=== PATIENT | female | born 1975 | race Caucasian/White ===

== ENCOUNTER 2018-05-06 13:33 | Outpatient (REF) | payer MEDICAID, SELFPAY | END 2018-05-06 13:53 | LOC: NCHCN 13:33 | PROVIDERS: PCP Internal Medicine; Visit Provider Registered Nurse | DX: R35.0 Frequency of micturition (principal) | CPT/HCPCS: 87077; 87086; 87186 ==

== ENCOUNTER 2018-05-14 12:13 | Outpatient (CLI) | payer MEDICAID, SELFPAY ==
[2018-05-14 14:17] LABS: ALT 25 U/L (12-78); AST 18 U/L (15-37); Albumin 3.8 g/dL (3.4-5.0); Alkaline Phosphatase 60 U/L (46-116); Bilirubin, Direct 0.15 mg/dL (0.00-0.20); Bilirubin, Total 0.7 mg/dL (0.2-1.0); Total Protein 6.8 g/dL (6.4-8.2)
== END 2018-05-14 12:33 ==
PROVIDERS: PCP Internal Medicine; Visit Provider Registered Nurse
DX: F10.20 Alcohol dependence, uncomplicated (principal)
CPT/HCPCS: 36415; 80076

== ENCOUNTER 2018-07-22 14:37 | Outpatient (REF) | payer MEDICAID, SELFPAY | END 2018-07-22 14:57 | LOC: NCHCN 14:37 | PROVIDERS: PCP Internal Medicine; Visit Provider Registered Nurse | DX: R82.90 Unspecified abnormal findings in urine (principal) | CPT/HCPCS: 87086 ==

== ENCOUNTER 2018-07-23 17:10 | Outpatient (CLI) | payer MEDICAID, SELFPAY ==
--- NOTE | 2018-07-23 15:00 | DI.CT_ITS ---
SYMPTOMS/DIAGNOSIS: RIGHT LOWER QUADRANT ABDOMINAL PAIN, R10.31, ? RENAL STONE OR APPENDICITIS PRE AND POST CONTRAST ABDOMINAL AND PELVIC CT: Noncontrast CT scan of the abdomen and pelvis was performed. No nephrolithiasis or hydronephrosis is seen. The gallbladder is negative sonographically. Post contrast images of the abdomen and pelvis were performed. Note is made of bilateral breast implants. The lung bases are clear. The liver is normal in size. No suspicious hepatic masses are seen. The portal and superior mesenteric veins are patent. The gallbladder is negative. There is no biliary ductal dilatation. The pancreas, spleen and adrenal glands are unremarkable. The kidneys show normal and symmetric enhancement. No evidence of a solid renal mass or obstruction. The urinary bladder is intact. The reproductive organs are unremarkable. The abdominal aorta is of normal caliber. No significant abdominal or pelvic adenopathy, ascites or pneumoperitoneum is present. The bowel shows no evidence of obstruction or inflammation. There is a normal air-filled appendix. No findings to suggest acute appendicitis are present. The bones are intact. No acute abnormality is identified. IMPRESSION: No evidence of an acute abdomen. No evidence of nephrolithiasis, obstructive uropathy or acute appendicitis.
[2018-07-23] MEDS: Omnipaque 350 MG/ML 100 ML BTL IJ (15:29)
== END 2018-07-23 17:30 ==
PROVIDERS: PCP Internal Medicine; Visit Provider Registered Nurse
DX: R10.31 Right lower quadrant pain (principal)
CPT/HCPCS: 74178; J3490

== ENCOUNTER 2020-01-11 20:47 | Outpatient (REF) | payer BC, SELFPAY | END 2020-01-11 21:07 | LOC: NCHCN 20:47 | PROVIDERS: PCP Internal Medicine; Visit Provider Nurse Practitioner Community Health | DX: R31.9 Hematuria, unspecified (principal) | CPT/HCPCS: 87086 ==

== ENCOUNTER 2020-06-16 18:47 | Outpatient (REF) | payer BC, SELFPAY ==
[2020-06-22 04:01] LABS: Patient Race White; SARS-CoV-2 RNA Undetected (Undetected); SARS-CoV-2 Specimen Source Nasal
== END 2020-06-16 19:07 ==
LOC: NCHCN 18:47
PROVIDERS: PCP Internal Medicine; Visit Provider Registered Nurse
DX: Z20.828 Contact with and (suspected) exposure to other viral communicable diseases (principal)
CPT/HCPCS: U0003

== ENCOUNTER 2020-09-07 13:34 | Outpatient (REF) | payer BC, SELFPAY ==
[2020-09-07 15:01] LABS: Anion Gap 6.6 mmol/L (3-11); BUN 12 mg/dL (7-18); CO2 26.4 mmol/L (21.0-32.0); CREATININE 0.84 mg/dL (0.55-1.02); Chloride 102 mmol/L (98-107); Glucose 98 mg/dL (74-106); Potassium 4.2 mmol/L (3.5-5.1); Sodium 135 mmol/L (136-145)
== END 2020-09-07 13:54 ==
LOC: NCHCN 13:34
PROVIDERS: PCP Internal Medicine; Visit Provider Registered Nurse
DX: R61 Generalized hyperhidrosis (principal); R29.2 Abnormal reflex; R68.82 Decreased libido
CPT/HCPCS: 80048

== ENCOUNTER 2020-09-14 02:04 | Outpatient (CLI) | payer BC, SELFPAY ==
--- NOTE | 2020-09-14 | DI.MRI_ITS ---
EXAM: MR LUMBAR SPINE WO CLINICAL HISTORY: BACK PAIN WITH RADICULOPATHY,M54.16,ACUTE ON CHRONIC. TECHNIQUE: Multiplanar multisequence MRI of the Lumbar spine was performed. COMPARISON: No exams were available for comparison FINDINGS: Bones: The last intervertebral disc space is designated the L5/S1 level for the numbering purpose of this examination. The vertebral body heights are well maintained. Alignment is satisfactory. Mild d egenerative endplate signal changes are seen at T11-T12, T12-L1, and from L3-4 through L5-S1. Cord: The conus tip ends at the T12 level. It is of normal size and signal intensity. T12-L1: No disc herniations or bulges are present. No central spinal canal or neural foraminal stenos is. L1-2: No disc herniations or bulges are present. No central spinal canal or neural foraminal stenosis . L2-3: No disc herniations or bulges are present. No central spinal canal or neural foraminal stenosis . L3-4: No disc herniations or bulges are present. No central spinal canal or neural foraminal stenosis . L4-5: There is diffuse disc bulge eccentric to the right. It causes right lateral recess stenosis an d appears to compress upon the right L5 nerve root. There is very mild narrowing of the central spin al canal. No significant neural foraminal stenosis is seen. L5-S1: No disc herniations or bulges are present. No central spinal canal or neural foraminal stenosi s. Soft tissues: The visualized SI joints and sacrum are well maintained. The paraspinal soft tissues ar e unremarkable. IMPRESSION: Diffuse disc bulge eccentric to the right at L4-L5 which appears to compress upon the right L5 nerve root and causes right lateral recess stenosis. There is mild narrowing of the central spinal canal a t this level. DATA REPOSITORY:
== END 2020-09-14 02:05 | disposition home or self-care (01) ==
LOC: DI 02:04
PROVIDERS: PCP Internal Medicine; Visit Provider Registered Nurse
DX: M48.061 Spinal stenosis, lumbar region without neurogenic claudication (principal); M51.26 Other intervertebral disc displacement, lumbar region; M54.16 Radiculopathy, lumbar region
CPT/HCPCS: 72148

== ENCOUNTER 2021-06-09 10:49 | Emergency (ER) | payer BC, SELFPAY ==
[2021-06-09] VITALS (11 sets, daily range): BP systolic 123–173; BP diastolic 85–111; PULSE 73–96; RESP 13–23; TEMP 36.9; O2SAT 98–99
--- NOTE | 2021-06-09 11:15 | RT.EKG_ITS ---
APPROVED REPORT Exam: Resting ECG Reason for Exam: fluttering Patient Location: E HR:79 bpm ECG Measurements Heart Rate 79 AXIS ME 144 P 28 QRSd 94 QRS 62 QT 381 T 33 QTc 438 Conclusion Sinus rhythm...normal P axis, V-rate 60- 99 Physician: no stemi
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
[2021-06-09 11:43] LABS: Abs Immature Grans 0.04 10^3/uL (0.0-0.06); Absolute Basophil Count 0.03 10^3/uL (0.0-0.2); Absolute Lymphocyte Count 1.86 10^3/uL (1.2-3.4); Absolute Monocyte Count 0.48 10^3/uL (0.1-0.8); Absolute Neutrophil Count 5.05 10^3/uL (1.2-6.7); Basophils % 0.4; Eosinophils % 1.3; HCT 43.3 % (36.0-46.0); Immature Grans % 0.5; Lymphocytes % 24.6; MCH 32.1 pg (27.0-33.0); MCHC 34.6 % (32.0-36.0); MCV 92.7 fL (80-95); MPV 9.8 fL (8.0-11.0); Monocytes % 6.3; Neutrophils % 66.9; Nucleated RBC 0 %; Platelet Count 294 10^3/uL (130-400); RBC 4.67 10^6/uL (3.93-5.22); RDW 11.9 % (11.7-14.6); RDW-SD 40.6 fL; WBC 7.56 10^3/uL (4.4-10.8)
[2021-06-09] MEDS: Normal Saline 1,000 ML 1000 ML IV (11:43)
[2021-06-09] MEDS: Prochlorperazine 10 MG/2 ML VIAL IVP (11:45)
[2021-06-09] MEDS: ACETAMINOPHEN 1,000 MG/100 ML BTL 400 MG IVPB (11:47)
[2021-06-09 12:04] LABS: ALT 31 U/L (14-59); AST 21 U/L (15-37); Albumin 4.1 g/dL (3.4-5.0); Alkaline Phosphatase 68 U/L (46-116); Anion Gap 7.9 mmol/L (3-11); BUN 11 mg/dL (7-18); Bilirubin, Total 0.7 mg/dL (0.2-1.0); CO2 28.1 mmol/L (21.0-32.0); CREATININE 0.8 mg/dL (0.55-1.02); Calcium 9.2 mg/dL (8.5-10.1); Chloride 104 mmol/L (98-107); Glucose 105 mg/dL (74-106); Magnesium 2.1 mg/dL (1.8-2.4); Potassium 4.2 mmol/L (3.5-5.1); Sodium 140 mmol/L (136-145); Total Protein 7.7 g/dL (6.4-8.2)
[2021-06-09 12:08] LABS: Troponin I < 0.05 ng/mL (<0.06)
[2021-06-09 12:16] LABS: TSH 2.24 uIU/mL (0.36-3.74)
== END 2021-06-09 13:23 | disposition left against medical advice (07) ==
PROVIDERS: Emergency Provider Physician Assistant; PCP Internal Medicine
DX: H53.8 Other visual disturbances (principal); R51.9 Headache, unspecified; Z53.29 Procedure and treatment not carried out because of patient's decision for other reasons
CPT/HCPCS: 36415; 80053; 93005; 96361; 96374; 96375; 99284; 83735; 84443; 84484; 85025; 93010; 99285; J0131; J0780

== ENCOUNTER 2022-01-05 16:17 | Outpatient (REF) | payer BC, SELFPAY ==
[2022-01-08 10:31] LABS: HBs Antibody, Quant 68.2 mIU/mL (See Note); Hepatitis B Surface Ab Positive (See Note)
== END 2022-01-05 16:18 | disposition home or self-care (01) ==
LOC: NCHCN 16:17
PROVIDERS: PCP Internal Medicine; Visit Provider Registered Nurse
DX: Z11.59 Encounter for screening for other viral diseases (principal)
CPT/HCPCS: 86706

== ENCOUNTER 2022-09-26 15:05 | Outpatient (REF) | payer BC, SELFPAY ==
[2022-09-26 21:39] LABS: ALT 35 U/L (14-59); AST 29 U/L (15-37); Albumin 4.2 g/dL (3.4-5.0); Alkaline Phosphatase 72 U/L (46-116); Anion Gap 9.6 mmol/L (3-11); BUN 8 mg/dL (7-18); Bilirubin, Total 0.6 mg/dL (0.2-1.0); CO2 25.4 mmol/L (21.0-32.0); CREATININE 0.8 mg/dL (0.55-1.02); Calcium 9.5 mg/dL (8.5-10.1); Calculated LDL 132 mg/dL (<100); Chloride 101 mmol/L (98-107); Cholesterol 262 mg/dL (<200); Estimated GFR 93.12 (mL/min/1.73m2); Glucose 103 mg/dL (74-106); HDL Cholesterol 122 mg/dL (40-60); Potassium 4.2 mmol/L (3.5-5.1); Sodium 136 mmol/L (136-145); Total Protein 7.7 g/dL (6.4-8.2); Triglyceride 40 mg/dL (<150)
== END 2022-09-26 15:06 | disposition home or self-care (01) ==
LOC: NCHCN 15:05
PROVIDERS: PCP Internal Medicine; Visit Provider Registered Nurse
DX: I10 Essential (primary) hypertension (principal); Z13.220 Encounter for screening for lipoid disorders
CPT/HCPCS: 80053; 80061

== ENCOUNTER 2023-06-26 17:34 | Outpatient (REF) | payer BC, SELFPAY ==
--- OUTSIDE RECORDS SUMMARY | 2023-06-26 17:37 | XMS_ITS | CCD ---
Author Name Unknown Address [address] [place] [address] [phone] Organization Unknown Address [address] [place] [address] [phone] Care Team Providers Care Financial Institution Treasurer Name Role Phone CARLOS RUTH Attending Physician [phone] CARLOS RUTH Rounding (Secondary) Physician [phone] Vital Signs Unknown or Not Available. Allergies Allergy Code Allergy Type Reaction Status TOPAMAX 914821 Drug allergy FACIAL RASH; Rash Activ e ROFECOXIB 111685 Drug allergy THROAT FELT LIK E CLOSING; VIOXX Active SULFA (sulfonamide) 0 Drug allergy Rash; ABD pain Active LAMICTAL 248540 Drug allergy FACIAL RASH; Rash Activ e LATEX 5468006 Allergy to substance YEAST INFECTION Active Procedures Unknown or Not Available. History of Immunizations Unknown or Not Available. Problems Unknown or Not Available. Results Unknown or Not Available. Active Medications Unknown or Not Available. Medications Administered During Visit Unknown or Not Available. Encounters Encounter Diagnosis Diagnosis Code Start Date Chronic migraine without aur a, not intractable, without status migrainosus [id number] 02/23/2022 Social History Smoking Status Code Start Date End Date Former smoker [id number] Patient Decision Aids Unknown or Not Available. Discharge Instructions You were admitted to [facility] on 02/23/2022 09:34 with a principal diagnosis of Chronic migraine without aura, not intractable, without status migrainosus You were discharged from [facility] on 02/23/2022 00:00 Should you have any questions prior to discharge, please contact a member of your healthcare team. If you have left the hospital and have any questions, please contact your primary care physician. Chief Complaint and Reason For Visit Unknown or Not Available. Function Status Unknown or Not Available. Plan of Care Unknown or Not Available. Referral/Transition of Care Unknown or Not Available.
--- OUTSIDE RECORDS SUMMARY | 2023-06-26 17:37 | XMS_ITS | CCD ---
Author Name Unknown Address [address] [place] [address] [id number] Organization Unknown Address [address] [place] [address] [id number] Care Team Providers Care Etch Operator Semiconductor Wafers Name Role Phone CARLOS RUTH Attending Physician [phone] Vital Signs Unknown or Not Available. Allergies Allergy Code Allergy Type Reaction Status TOPAMAX 049667 Drug allergy FACIAL RASH; Rash Activ e ROFECOXIB 382992 Drug allergy THROAT FELT LIK E CLOSING; VIOXX Active SULFA (sulfonamide) 0 Drug allergy Rash; ABD pain Active LAMICTAL 580489 Drug allergy FACIAL RASH; Rash Activ e LATEX 7481253 Allergy to substance YEAST INFECTION Active Procedures Unknown or Not Available. History of Immunizations Unknown or Not Available. Problems Unknown or Not Available. Results Unknown or Not Available. Active Medications Unknown or Not Available. Medications Administered During Visit Unknown or Not Available. Encounters Encounter Diagnosis Diagnosis Code Start Date Chronic intractable migraine without aura [id number] 11/23/2022 Social History Smoking Status Code Start Date End Date Former smoker [id number] Patient Decision Aids Unknown or Not Available. Discharge Instructions You were admitted to [facility] on 11/23/2022 13:03 with a principal diagnosis of Chronic migraine without aura, intractable, without status migrainosus You were discharged from [facility] on 11/23/2022 13:03 Should you have any questions prior to [...]
--- OUTSIDE RECORDS SUMMARY | 2023-06-26 17:37 | XMS_ITS | CCD ---
Author Name Unknown Address [address] [place] [address] [phone] Organization Unknown Address [address] [place] [address] [phone] Care Team Providers Care Electric Range Servicer Name Role Phone CARLOS RUTH Attending Physician [phone] CARLOS RUTH Rounding (Secondary) Physician [phone] Vital Signs Unknown or Not Available. Allergies Allergy Code Allergy Type Reaction Status TOPAMAX 435376 Drug allergy FACIAL RASH; Rash Activ e ROFECOXIB 766170 Drug allergy THROAT FELT LIK E CLOSING; VIOXX Active SULFA (sulfonamide) 0 Drug allergy Rash; ABD pain Active LAMICTAL 924431 Drug allergy FACIAL RASH; Rash Activ e LATEX 5298819 Allergy to substance YEAST INFECTION Active Procedures Unknown or Not Available. History of Immunizations Unknown or Not Available. Problems Unknown or Not Available. Results Unknown or Not Available. Active Medications Unknown or Not Available. Medications Administered During Visit Unknown or Not Available. Encounters Encounter Diagnosis Diagnosis Code Start Date Chronic migraine without aur a, not intractable, without status migrainosus [id number] 05/25/2022 Social History Smoking Status Code Start Date End Date Former smoker [id number] Patient Decision Aids Unknown or Not Available. Discharge Instructions You were admitted to [facility] on 05/25/2022 13:47 with a principal diagnosis of Chronic migraine without aura, not intractable, without status migrainosus You were discharged from [facility] on 05/25/2022 00:00 Should you have any questions prior [...]
--- OUTSIDE RECORDS SUMMARY | 2023-06-26 17:37 | XMS_ITS | CCD ---
Author Name Unknown Address [address] [place] [address] [phone] Organization Unknown Address [address] [place] [address] [phone] Care Team Providers Care Bleach Maker Name Role Phone CARLOS RUTH Attending Physician [phone] Vital Signs Unknown or Not Available. Allergies Allergy Code Allergy Type Reaction Status TOPAMAX 050614 Drug allergy FACIAL RASH; Rash Activ e ROFECOXIB 382534 Drug allergy THROAT FELT LIK E CLOSING; VIOXX Active SULFA (sulfonamide) 0 Drug allergy Rash; ABD pain Active LAMICTAL 957471 Drug allergy FACIAL RASH; Rash Activ e LATEX 6918980 Allergy to substance YEAST INFECTION Active Procedures Unknown or Not Available. History of Immunizations Unknown or Not Available. Problems Unknown or Not Available. Results Unknown or Not Available. Active Medications Unknown or Not Available. Medications Administered During Visit Unknown or Not Available. Encounters Encounter Diagnosis Diagnosis Code Start Date Chronic migraine without aur a, not intractable, without status migrainosus [id number] 02/25/2023 Social History Smoking Status Code Start Date End Date Former smoker [id number] Patient Decision Aids Unknown or Not Available. Discharge Instructions You were admitted to [facility] on 02/25/2023 12:58 with a principal diagnosis of Chronic migraine without aura, not intractable, without status migrainosus You were discharged from [facility] on 02/25/2023 12:58 Should you have any questions prior to [...]
--- OUTSIDE RECORDS SUMMARY | 2023-06-26 17:38 | XMS_ITS | CCD ---
Author Name Unknown Address [address] [place] [address] [id number] Organization Unknown Address [address] [place] [address] [phone] Care Team Providers Care Motorcycle Deliverer Name Role Phone CARLOS RUTH Attending Physician [phone] CARLOS RUTH Rounding (Secondary) Physician [phone] Vital Signs Unknown or Not Available. Allergies Allergy Code Allergy Type Reaction Status TOPAMAX 612972 Drug allergy FACIAL RASH; Rash Activ e ROFECOXIB 125994 Drug allergy THROAT FELT LIK E CLOSING; VIOXX Active SULFA (sulfonamide) 0 Drug allergy Rash; ABD pain Active LAMICTAL 709717 Drug allergy FACIAL RASH; Rash Activ e LATEX 2890080 Allergy to substance YEAST INFECTION Active Procedures Unknown or Not Available. History of Immunizations Unknown or Not Available. Problems Unknown or Not Available. Results Unknown or Not Available. Active Medications Unknown or Not Available. Medications Administered During Visit Unknown or Not Available. Encounters Encounter Diagnosis Diagnosis Code Start Date Chronic migraine without aur a, not intractable, without status migrainosus [id number] 08/18/2021 Social History Smoking Status Code Start Date End Date Former smoker [id number] Patient Decision Aids Unknown or Not Available. Discharge Instructions You were admitted to [facility] on 08/18/2021 09:40 with a principal diagnosis of Chronic migraine without aura, not intractable, without status migrainosus You were discharged from [facility] on 08/18/2021 00:00 Should you have any questions prior [...]
--- OUTSIDE RECORDS SUMMARY | 2023-06-26 17:38 | XMS_ITS | CCD ---
Author Name Unknown Address [address] [place] [address] [phone] Organization Unknown Address [address] [place] [address] [id number] Care Team Providers Care Abrasive Sawyer Name Role Phone CARLOS RUTH Attending Physician [phone] CARLOS RUTH Rounding (Secondary) Physician [phone] Vital Signs Unknown or Not Available. Allergies Allergy Code Allergy Type Reaction Status TOPAMAX 302105 Drug allergy FACIAL RASH; Rash Activ e ROFECOXIB 369144 Drug allergy THROAT FELT LIK E CLOSING; VIOXX Active SULFA (sulfonamide) 0 Drug allergy Rash; ABD pain Active LAMICTAL 385378 Drug allergy FACIAL RASH; Rash Activ e LATEX 7870612 Allergy to substance YEAST INFECTION Active Procedures Unknown or Not Available. History of Immunizations Unknown or Not Available. Problems Unknown or Not Available. Results Unknown or Not Available. Active Medications Unknown or Not Available. Medications Administered During Visit Unknown or Not Available. Encounters Encounter Diagnosis Diagnosis Code Start Date Chronic migraine without aur a, intractable, without status migrainosus [id number] 10/20/2021 Social History Smoking Status Code Start Date End Date Former smoker [id number] Patient Decision Aids Unknown or Not Available. Discharge Instructions You were admitted to [facility] on 10/20/2021 15:23 with a principal diagnosis of Chronic migraine without aura, intractable, without status migrainosus You were discharged from [facility] on 10/20/2021 00:00 Should you have any questions prior [...]
--- OUTSIDE RECORDS SUMMARY | 2023-06-26 17:38 | XMS_ITS | CCD ---
Author Name Unknown Address [address] [place] [address] [phone] Organization Unknown Address [address] [place] [address] [phone] Care Team Providers Care Behavioral Psychologist Name Role Phone CARLOS RUTH Attending Physician [phone] CARLOS RUTH Rounding (Secondary) Physician [phone] Vital Signs Unknown or Not Available. Allergies Allergy Code Allergy Type Reaction Status TOPAMAX 414743 Drug allergy FACIAL RASH; Rash Activ e ROFECOXIB 730178 Drug allergy THROAT FELT LIK E CLOSING; VIOXX Active SULFA (sulfonamide) 0 Drug allergy Rash; ABD pain Active LAMICTAL 784337 Drug allergy FACIAL RASH; Rash Activ e LATEX 4530283 Allergy to substance YEAST INFECTION Active Procedures Unknown or Not Available. History of Immunizations Unknown or Not Available. Problems Unknown or Not Available. Results Unknown or Not Available. Active Medications Unknown or Not Available. Medications Administered During Visit Unknown or Not Available. Encounters Encounter Diagnosis Diagnosis Code Start Date Chronic migraine without aur a, not intractable, without status migrainosus [id number] 11/24/2021 Social History Smoking Status Code Start Date End Date Former smoker [id number] Patient Decision Aids Unknown or Not Available. Discharge Instructions You were admitted to [facility] on 11/24/2021 13:48 with a principal diagnosis of Chronic migraine without aura, not intractable, without status migrainosus You were discharged from [facility] on 11/24/2021 00:00 Should you have any questions prior [...]
--- OUTSIDE RECORDS SUMMARY | 2023-06-26 17:38 | XMS_ITS | CCD ---
Author Name Unknown Address [address] [place] [address] [phone] Organization Unknown Address [address] [place] [address] [phone] Care Team Providers Care Multilith Operator Name Role Phone CARLOS [facility] Attending Physician [phone] CARLOS RUTH Rounding (Secondary) Physician [phone] Vital Signs Unknown or Not Available. Allergies Allergy Code Allergy Type Reaction Status TOPAMAX 192965 Drug allergy FACIAL RASH; Rash Activ e ROFECOXIB 772116 Drug allergy THROAT FELT LIK E CLOSING; VIOXX Active SULFA (sulfonamide) 0 Drug allergy Rash; ABD pain Active LAMICTAL 115521 Drug allergy FACIAL RASH; Rash Activ e LATEX 8920416 Allergy to substance YEAST INFECTION Active Procedures Unknown or Not Available. History of Immunizations Unknown or Not Available. Problems Unknown or Not Available. Results Unknown or Not Available. Active Medications Unknown or Not Available. Medications Administered During Visit Unknown or Not Available. Encounters Encounter Diagnosis Diagnosis Code Start Date Chronic migraine without aur a, intractable, without status migrainosus [id number] 07/25/2021 Social History Smoking Status Code Start Date End Date Former smoker [id number] Patient Decision Aids Unknown or Not Available. Discharge Instructions You were admitted to [facility] on 07/25/2021 14:44 with a principal diagnosis of Chronic migraine without aura, intractable, without status migrainosus You were discharged from [facility] on 07/25/2021 00:00 Should you have any questions prior [...]
[2023-06-26 21:55] LABS: Vitamin D 25 Total 31.4 ng/mL (30-100)
[2023-06-26 21:58] LABS: TSH (W/Ref FT4) 1.84 uIU/mL (0.36-3.74); Vitamin B12 549 pg/mL (193-986)
== END 2023-06-26 17:35 | disposition home or self-care (01) ==
LOC: NCHCN 17:34
PROVIDERS: PCP Internal Medicine; Visit Provider Family Medicine
DX: F41.8 Other specified anxiety disorders (principal); I10 Essential (primary) hypertension; Z79.899 Other long term (current) drug therapy
CPT/HCPCS: 82306; 82607; 84443

== ENCOUNTER 2024-07-24 00:27 | Outpatient (CLI) | payer BC, SELFPAY ==
--- NOTE | 2024-07-24 | DI.MRI_ITS ---
Exam(s) MR LUMBAR SPINE WO EXAM: MR LUMBAR SPINE WO CLINICAL HISTORY: LOW BACK PAIN M54.50. TECHNIQUE: Multiplanar multisequence MRI of the Lumbar spine was performed. MR MR LUMBAR SPINE WO from 09/14/2020 FINDINGS: Conus medullaris is at normal level. There is no evidence of conus mass nor subjacent clumping of in trathecal nerve roots to suggest arachnoiditis. The distal thecal sac appears unremarkable.There is no evidence of Tarlov intrasacral cysts nor other significant findings within the sacral canal Bones:There are no fractures nor ominous osseous lesions in the lumbar vertebral bodies and visualize d sacrum. With respect to the individual levels... T12-L1: Schmorl's node invagination in the anterior aspect of the L1 superior endplate is unchanged f rom 2020 and not associated with bone edema. There is no disc herniation at this level. Central can al dimensions are normal. There is no foraminal stenosis. No facet arthropathy. L1-2: Normal disc height and signal. No disc herniation nor central canal stenosis.No foraminal steno sis L2-3: Normal disc height. No disc herniation nor central canal stenosis.No foraminal stenosis.No face t arthropathy. L3-4: Normal disc height. No disc herniation or central canal stenosis.No foraminal stenosis.No face t arthropathy. L4-5: This level exhibits moderate disc space narrowing which is more prominent on the right than lef t side. There are mild Modic type 1 sub endplate marrow edema changes on the right side of this disc space. Posteriorly there is a central-right paracentral disc herniation again noted which extends p osteriorly 5 mm and indents the anterior and right side of the thecal sac, slightly more so than 202 . Results in mild central spinal canal stenosis. The disc protrusion does not extend into the exiti ng neural foramen. There is no foraminal stenosis on either side at this level. Facet joints appear unremarkable. L5-S1: This level exhibits preserved disc height and signal. However, there is now a posterolateral left disc protrusion at this level which extends posteriorly 4 mm and is 1.2 cm wide, this occupying the left lateral recess and impressing upon the anterior left side of the thecal sac at this level an d left-sided nerve root at this level. Canal dimensions are lower normal. The disc herniation exten ds into the floor of the exiting left neural foramen resulting in mild left-sided unilateral foramina l stenosis. The opposite-right exiting neural foramen is widely patent at this level. The right fac et joint at this level appears unremarkable. There are mild degenerative changes in the left facet j oint at this level. Soft tissues: paraspinal soft tissues appear unremarkable. IMPRESSION: 1. Compared to the prior lumbar spine MRI of September 2020 there is now a new posterolateral left dis c protrusion as described above at the L5-S1 level. This indents the left side of the thecal sac at the left lateral recess level and also extends into the floor of the exiting left neural foramen resu lting in mild unilateral left-sided foraminal stenosis at this level. 2. There is a central-right paracentral disc herniation again noted at L4-5 level which is slightly l arger than on the 2020 study. There is no significant foraminal stenosis on either side at this leve l. DATA REPOSITORY:
--- OUTSIDE RECORDS SUMMARY | 2024-07-24 00:28 | XMS_ITS ---
Author Organization Unknown Address [address] [place] [address] [phone] Phone Care Team Providers Care Salvage Inspector Name Role Phone FARAZ GONZALEZ Attending Unavailable BLANCA Lawson Primary Unavailable Social History Type Status Start Date End Date Code Code Syst em Smoking History Former smoker [id number] SNOMED CT Sex Female Hospital Discharge Instructions Should you have any questions prior to discharge, please contact a member of your healthcare team. If you have left the hospital and have any questions, please contact your primary care physician. Reason For Referral No Data Found Allergies and Adverse Reactions Allergy Substance Reaction Severity Start Date Concern Status Code Code System SULFA (sulfonamide) Rash (SNOMED-CT: 356305811), ABD pain (SNOMED-CT: 33931099) Active 23255499 SNOMED-CT LATEX YEAST INFECTION (SNOMED-CT: null) Moderate Active 6699006 RxNorm ROFECOXIB THROAT FELT LIKE CLOSING (SNOMED-CT: null), VIOXX (SNOMED-CT: null) Moderate Active 027367 RxNorm LAMICTAL Rash (SNOMED-CT: 681810837), FACIAL RASH (SNOMED-CT: null) Active 715294 RxNorm TOPAMAX Rash (SNOMED-CT: 556454177), FACIAL RASH (SNOMED-CT: null) Active 780357 RxNorm Plan of Treatment Pre-Op Covid-19 Testing 05/28/2020 Encounters Encounter Diagnosis Start Date Code Code Sys tem Chronic migraine without aur a, not intractable, without status migrainosus 08/18/2021 SNOMED-CT Personal Care Team Section Performer Name Performer Role Active Date Inactive Da te
--- OUTSIDE RECORDS SUMMARY | 2024-07-24 00:28 | XMS_ITS ---
Author Organization Unknown Address [address] [place] [address] [phone] Phone Care Team Providers Care Renal Dialysis Rn Name Role Phone FARAZ GONZALEZ Attending Unavailable BLANCA Lawson Primary Unavailable Social History Type Status Start Date End Date Code Code Syst em Smoking History Former smoker [id number] SNOMED CT Sex Female Hospital Discharge Instructions [...] Code Code System SULFA (sulfonamide) Rash (SNOMED-CT: 957904726), ABD pain (SNOMED-CT: 07901778) Active 74046442 SNOMED-CT LATEX YEAST INFECTION (SNOMED-CT: null) Moderate Active 6802773 RxNorm ROFECOXIB THROAT FELT LIKE CLOSING (SNOMED-CT: null), VIOXX (SNOMED-CT: null) Moderate Active 782156 RxNorm LAMICTAL Rash (SNOMED-CT: 252007399), FACIAL RASH (SNOMED-CT: null) Active 412852 RxNorm TOPAMAX Rash (SNOMED-CT: 027036325), FACIAL RASH (SNOMED-CT: null) Active 012431 RxNorm Plan of Treatment Pre-Op Covid-19 Testing 05/28/2020 Encounters Encounter Diagnosis Start Date Code Code Sys tem Chronic migraine without aur a, intractable, without status migrainosus 07/25/2021 SNOMED-CT Personal Care Team Section Performer Name Performer Role Active Date Inactive Da te
--- OUTSIDE RECORDS SUMMARY | 2024-07-24 00:29 | XMS_ITS ---
Author Organization Unknown Address [address] [place] [address] [phone] Phone Care Team Providers Care Instructor Private Name Role Phone FARAZ GONZALEZ Attending Unavailable BLANCA Lawson Primary Unavailable Social History Type Status Start Date End Date Code Code Syst em Smoking History Former smoker 2938714 SNOMED CT Sex Female Hospital Discharge Instructions [...] Code Code System SULFA (sulfonamide) Rash (SNOMED-CT: 506486854), ABD pain (SNOMED-CT: 51267874) Active 44406996 SNOMED-CT LATEX YEAST INFECTION (SNOMED-CT: null) Moderate Active 8740066 RxNorm ROFECOXIB THROAT FELT LIKE CLOSING (SNOMED-CT: null), VIOXX (SNOMED-CT: null) Moderate Active 432135 RxNorm LAMICTAL Rash (SNOMED-CT: 254910784), FACIAL RASH (SNOMED-CT: null) Active 752333 RxNorm TOPAMAX Rash (SNOMED-CT: 721650233), FACIAL RASH (SNOMED-CT: null) Active 924981 RxNorm Plan of Treatment Pre-Op Covid-19 Testing 05/28/2020 Encounters Encounter Diagnosis Start Date Code Code Sys tem 08/24/2022 [id number] SNOMED-CT Personal Care Team Section Performer Name Performer Role Active Date Inactive Da te
--- OUTSIDE RECORDS SUMMARY | 2024-07-24 00:29 | XMS_ITS ---
Author Organization Unknown Address [address] [place] [address] [phone] Phone Care Team Providers Care Zanjero Name Role Phone FARAZ GONZALEZ Attending Unavailable BLANCA Lawson Primary Unavailable Social History Type Status Start Date End Date Code Code Syst em Smoking History Former smoker 7830167 SNOMED CT Sex Female Hospital Discharge Instructions [...] Code Code System SULFA (sulfonamide) Rash (SNOMED-CT: 089206088), ABD pain (SNOMED-CT: 99741242) Active 14773431 SNOMED-CT LATEX YEAST INFECTION (SNOMED-CT: null) Moderate Active 6041436 RxNorm ROFECOXIB THROAT FELT LIKE CLOSING (SNOMED-CT: null), VIOXX (SNOMED-CT: null) Moderate Active 428511 RxNorm LAMICTAL Rash (SNOMED-CT: 296320783), FACIAL RASH (SNOMED-CT: null) Active 079634 RxNorm TOPAMAX Rash (SNOMED-CT: 562491703), FACIAL RASH (SNOMED-CT: null) Active 212537 RxNorm Plan of Treatment Pre-Op Covid-19 Testing 05/28/2020 Encounters Encounter Diagnosis Start Date Code Code Sys tem Chronic migraine without aur a, not intractable, without status migrainosus 02/23/2022 SNOMED-CT Personal Care Team Section Performer Name Performer Role Active Date Inactive Da te
--- OUTSIDE RECORDS SUMMARY | 2024-07-24 00:29 | XMS_ITS ---
Author Organization Unknown Address [address] [place] [address] [phone] Phone Care Team Providers Care Barrel Lapper Name Role Phone FARAZ GONZALEZ Attending Unavailable BLANCA Lawson Primary Unavailable Social History Type Status Start Date End Date Code Code Syst em Smoking History Former smoker 2338632 SNOMED CT Sex Female Hospital Discharge Instructions [...] Code Code System SULFA (sulfonamide) Rash (SNOMED-CT: 691543807), ABD pain (SNOMED-CT: 00362798) Active 50476023 SNOMED-CT LATEX YEAST INFECTION (SNOMED-CT: null) Moderate Active 5308707 RxNorm ROFECOXIB THROAT FELT LIKE CLOSING (SNOMED-CT: null), VIOXX (SNOMED-CT: null) Moderate Active 357536 RxNorm LAMICTAL Rash (SNOMED-CT: 642676344), FACIAL RASH (SNOMED-CT: null) Active 211071 RxNorm TOPAMAX Rash (SNOMED-CT: 260724028), FACIAL RASH (SNOMED-CT: null) Active 231391 RxNorm Plan of Treatment Pre-Op Covid-19 Testing 05/28/2020 Encounters Encounter Diagnosis Start Date Code Code Sys tem 05/25/2022 [id number] SNOMED-CT Personal Care Team Section Performer Name Performer Role Active Date Inactive Da te
--- OUTSIDE RECORDS SUMMARY | 2024-07-24 00:29 | XMS_ITS ---
Author Organization Unknown Address [address] [place] [address] [phone] Phone Care Team Providers Care Flowers Salesperson Name Role Phone FARAZ GONZALEZ Attending Unavailable BLANCA Lawson Primary Unavailable Social History Type Status Start Date End Date Code Code Syst em Smoking History Former smoker 6998605 SNOMED CT Sex Female Hospital Discharge Instructions [...] Code Code System SULFA (sulfonamide) Rash (SNOMED-CT: 258018147), ABD pain (SNOMED-CT: 58199551) Active 40617249 SNOMED-CT LATEX YEAST INFECTION (SNOMED-CT: null) Moderate Active 1106329 RxNorm ROFECOXIB THROAT FELT LIKE CLOSING (SNOMED-CT: null), VIOXX (SNOMED-CT: null) Moderate Active 429306 RxNorm LAMICTAL Rash (SNOMED-CT: 858822659), FACIAL RASH (SNOMED-CT: null) Active 406411 RxNorm TOPAMAX Rash (SNOMED-CT: 624985465), FACIAL RASH (SNOMED-CT: null) Active 196819 RxNorm Plan of Treatment Pre-Op Covid-19 Testing 05/28/2020 Encounters Encounter Diagnosis Start Date Code Code Sys tem Chronic migraine without aur a, not intractable, without status migrainosus 11/24/2021 SNOMED-CT Personal Care Team Section Performer Name Performer Role Active Date Inactive Da te
--- OUTSIDE RECORDS SUMMARY | 2024-07-24 00:29 | XMS_ITS ---
Author Organization Unknown Address [address] [place] [address] [phone] Phone Care Team Providers Care Fashion Designer Name Role Phone FARAZ GONZALEZ Attending Unavailable BLANCA Lawson Primary Unavailable Social History Type Status Start Date End Date Code Code Syst em Smoking History Former smoker 7233305 SNOMED CT Sex Female Hospital Discharge Instructions [...] Code Code System SULFA (sulfonamide) Rash (SNOMED-CT: 059790295), ABD pain (SNOMED-CT: 08653896) Active 52546673 SNOMED-CT LATEX YEAST INFECTION (SNOMED-CT: null) Moderate Active 1635075 RxNorm ROFECOXIB THROAT FELT LIKE CLOSING (SNOMED-CT: null), VIOXX (SNOMED-CT: null) Moderate Active 295369 RxNorm LAMICTAL Rash (SNOMED-CT: 733032472), FACIAL RASH (SNOMED-CT: null) Active 553941 RxNorm TOPAMAX Rash (SNOMED-CT: 320937655), FACIAL RASH (SNOMED-CT: null) Active 046504 RxNorm Plan of Treatment Pre-Op Covid-19 Testing 05/28/2020 Encounters Encounter Diagnosis Start Date Code Code Sys tem Chronic migraine without aur a, intractable, without status migrainosus 10/20/2021 SNOMED-CT Personal Care Team Section Performer Name Performer Role Active Date Inactive Da te
--- OUTSIDE RECORDS SUMMARY | 2024-07-24 00:30 | XMS_ITS ---
Author Organization Unknown Address [address] [place] [address] [phone] Phone Care Team Providers Care Shopper Marketing Manager Name Role Phone FARAZ GONZALEZ Attending Unavailable BLANCA Lawson Primary Unavailable Social History Type Status Start Date End Date Code Code Syst em Smoking History Former smoker 0232935 SNOMED CT Sex Female Hospital Discharge Instructions [...] Code Code System SULFA (sulfonamide) Rash (SNOMED-CT: 417277045), ABD pain (SNOMED-CT: 26621218) Active 58344709 SNOMED-CT LATEX YEAST INFECTION (SNOMED-CT: null) Moderate Active 7726392 RxNorm ROFECOXIB THROAT FELT LIKE CLOSING (SNOMED-CT: null), VIOXX (SNOMED-CT: null) Moderate Active 829950 RxNorm LAMICTAL Rash (SNOMED-CT: 258189807), FACIAL RASH (SNOMED-CT: null) Active 005997 RxNorm TOPAMAX Rash (SNOMED-CT: 391521954), FACIAL RASH (SNOMED-CT: null) Active 024237 RxNorm Plan of Treatment Pre-Op Covid-19 Testing 05/28/2020 Encounters Encounter Diagnosis Start Date Code Code Sys tem Chronic intractable migraine without aura 11/23/2022 [id number] SNOMED-CT Personal Care Team Section Performer Name Performer Role Active Date Inactive Da te
--- OUTSIDE RECORDS SUMMARY | 2024-07-24 00:30 | XMS_ITS ---
Author Organization Unknown Address [address] [place] [address] [phone] Phone Care Team Providers Care Iv Technician Name Role Phone FARAZ GONZALEZ Attending Unavailable ATUL NORMA Primary Unavailable Social History Type Status Start Date End Date Code Code Syst em Smoking History Former smoker 6804879 SNOMED CT Sex Female Hospital Discharge Instructions [...] Code Code System SULFA (sulfonamide) Rash (SNOMED-CT: 336758613), ABD pain (SNOMED-CT: 00858460) Active 29451041 SNOMED-CT LATEX YEAST INFECTION (SNOMED-CT: null) Moderate Active 1339166 RxNorm ROFECOXIB THROAT FELT LIKE CLOSING (SNOMED-CT: null), VIOXX (SNOMED-CT: null) Moderate Active 665637 RxNorm LAMICTAL Rash (SNOMED-CT: 337775153), FACIAL RASH (SNOMED-CT: null) Active 154862 RxNorm TOPAMAX Rash (SNOMED-CT: 388961184), FACIAL RASH (SNOMED-CT: null) Active 905595 RxNorm Plan of Treatment Pre-Op Covid-19 Testing 05/28/2020 Encounters Encounter Diagnosis Start Date Code Code Sys tem 08/27/2023 [id number] SNOMED-CT Personal Care Team Section Performer Name Performer Role Active Date Inactive Da te
--- OUTSIDE RECORDS SUMMARY | 2024-07-24 00:30 | XMS_ITS ---
Author Organization Unknown Address [address] [place] [address] [phone] Phone Care Team Providers Care Broke Handler Name Role Phone FARAZ GONZALEZ Attending Unavailable BLANCA Lawson Primary Unavailable Social History Type Status Start Date End Date Code Code Syst em Smoking History Former smoker 9040178 SNOMED CT Sex Female Hospital Discharge Instructions [...] Code Code System SULFA (sulfonamide) Rash (SNOMED-CT: 360169822), ABD pain (SNOMED-CT: 02007715) Active 37491684 SNOMED-CT LATEX YEAST INFECTION (SNOMED-CT: null) Moderate Active 8806431 RxNorm ROFECOXIB THROAT FELT LIKE CLOSING (SNOMED-CT: null), VIOXX (SNOMED-CT: null) Moderate Active 728544 RxNorm LAMICTAL Rash (SNOMED-CT: 366908598), FACIAL RASH (SNOMED-CT: null) Active 029886 RxNorm TOPAMAX Rash (SNOMED-CT: 493982841), FACIAL RASH (SNOMED-CT: null) Active 563184 RxNorm Plan of Treatment Pre-Op Covid-19 Testing 05/28/2020 Encounters Encounter Diagnosis Start Date Code Code Sys tem 02/25/2023 [id number] SNOMED-CT Personal Care Team Section Performer Name Performer Role Active Date Inactive Da te
--- OUTSIDE RECORDS SUMMARY | 2024-07-24 00:31 | XMS_ITS | Encounter Summary ---
Author Organization [facility] Address [address] [place] [address] Care Team Providers Care Firer Tunnel Kiln Name Role Phone Antonio Carrizales MD Primary Care Provider Un available Encounter Details Date Type Department Care Team (Late st Contact Info) Description 12/25/2017 Results Only [facility] [phone] Lucrecia Sanchez, ACCOUNTS EXECUTIVE [address] [place] [address] Social History Tobacco Use Types Packs/Day Years Used Date Smoking Tobacco: Never Assessed Comments Unknown Sex and Gender Information Value Date Recorded Sex Assigned at Not on file Legal Sex Female 18:07 EST Gender Identity Not on file Sexual Orientation Not on file documented as of this encounter Plan of Treatment Not on file documented as of this encounter Procedures Procedure Name Priority Date/Time Associated Diagnosis Comments PAP TEST- RESULT ONLY Routine 12/25/2017 0:00 EDT documented in this encounter Results * PAP TEST- RESULT ONLY (12/25/2017 0:00 EDT) Pathology Report: CYTOPATHOLOGY REPORT Reports generated via electronic interface contain original data; however they are lacking the format of the original report. Caution should be taken when reading/interpreti ng unformatted reports. Name: ? SATNAM GUAMAN ? Accession #: ? [id number] ? : ? 1975 (Age: 42) ??F ?Collect Date: ? 12/25/2017 ? Location: ? [facility] ? Receive Date: ? 12/27/2017 ? Provider: LUCRECIA SANCHEZ ACCOUNTS EXECUTIVE Copy to: ? Final Report SPECIMEN ADEQUACY ? Satisfactory for Evaluation - transformation zone component present GENERAL CATEGORIZATION ? Epithelial Cell Abnormality INTERPRETATION ? Squamous Cell Abnormality - Atypical squamous cells, cannot exclude high grade squamous intraepithelial lesion (ASC-H). EDUCATIONAL NOTES/RECOMMENDATI ONS ? [facility] recommends following ASCCP's 2012 Updated Consensus Guidelines for the Management of Abnormal Cervical Cancer Screening Tests and Cancer Precursors (JLGTD, 2013; 17(5):S1-S27). ??Consensus guidelines are available online at www.asccp.org. Last Menstrual Period: 08/12/09 Specimen/Source: ??Pap Test, Cervix, ThinPrep Imaging System with manual evaluation Document reviewed and electronically signed by: ? REGULO ONEILL MD ? Report ??Date: 01/03/2018 11:08 HPV with Pap Test ? Date Ordered: ? 01/03/2018 ? Status: ?? Signed Out ?Date Complete: ? 01/06/2018 ? By: ??System Interface ? Date Reported: ? 01/06/2018 ? Interpretation RESULT: POSITIVE FOR HIGH OR INTERMEDIATE RISK HPV. E6 OR E7 mRNA from one or more types of HPV types 16,18,31, 33,35,39,45,51,52, 56,58,59,66, and 68 is detected by figure skater mediated amplification. High and intermediate risk HPV types are associated with most squamous intraepithelial lesions and cervical cancers. Comments Document reviewed and electronically signed by: ? System Interface ? Report date: 01/06/2018 By the signature above, the attending physician certifies that he/she has personally conducted a gross and/or microscopic examination of the described specimens and rendered or confirmed the above diagnosis. End of Report [facility] 12/25/2017 12/27/2017 us Lucrecia Sanchez ACCOUNTS EXECUTIVE PATHOLOGY ORDERABLES Fin al Result [facility] [address] [place] [address] documented in this encounter Visit Diagnoses Not on filedocumented in this encounter Care Teams Firer Tunnel Kiln Relationship Specialty Start Date End Date Antonio Carrizales MD PCP - General 11/22/11 04/30/23 documented as of this encounter
--- OUTSIDE RECORDS SUMMARY | 2024-07-24 00:31 | XMS_ITS | Encounter Summary ---
Author Organization [facility] Address [address] [place] [id number] Care Team Providers Care Patient Financial Coordinator Name Role Phone Unavailable Primary Care Provider Unavailabl e Encounter Details Date Type Department Care Team (Late st Contact Info) Description 09/01/2009 Orders Only [facility] Laboratory [facility] - [facility] ([facility] [address] [place] [address] [phone] Pawan Cisneros MD Social History Tobacco Use Types Packs/Day Years [...] Procedure Name Priority Date/Time Associated Diagnosis Comments CYTOPATHOLOGY Routine 09/01/2009 0:00 EST documented in this encounter Results * CYTOPATHOLOGY (09/01/2009 0:00 EST) Pathology Report: CYTOPATHOLOGY REPORT ? Reports generated via electronic interface contain original data; ? however they are lacking the format of the original report. ? Caution should be taken when reading/interpreti ng unformatted reports. ? Name: ? SATNAM GUAMAN ? Accession #: ? [id number] ? : ? 1975 (Age: 33) ??F ?Collect Date: ? 09/01/2009 ? Location: ? [facility] ? Receive Date: ? 09/02/2009 ? Provider: ?PAWAN CISNEROS MD ? Copy to: ? Specimen/Source: ?Pap Test, Cervix/Endocervix, ThinPrep Imaging System ? with manual evaluation ? Last Menstrual Period: ? Hormonal/Contracep tive Status: ? Tubal ligation: Bilateral 2005 ? Treatment History: ? Miscellaneous treatment: Endometrial ablation 4/09 ? Other: ? HPVA - HPV testing requested if ASC-US on the current ThinPrep Pap test. ? SPECIMEN ADEQUACY ? Satisfactory for Evaluation ? - transformation zone component present ? GENERAL CATEGORIZATION ? Negative for Intraepithelial Lesion or Malignancy ? Document reviewed and electronically signed by: ? Lynan Hever, CT(ASCP) ? Report Date: ??09/05/2009 13:21 ? End of Report ? [facility] 09/01/2009 09/02/2009 us Pawan Cisneros MD PATHOLOGY ORDERABLES Final Res ult [facility] [address] [place] [address] documented in this encounter Visit Diagnoses Not on filedocumented in this encounter
--- OUTSIDE RECORDS SUMMARY | 2024-07-24 00:31 | XMS_ITS | Encounter Summary ---
[place] [address] Care Team Providers Care Workcell Operator Name Role Phone Lisa Sanchez APRN Primary Care Provider + Reason for Referral * Consultation (Routine) - Closed Specialty Diagnoses / Procedures Referred By Nikki sage Referred To Contact Otolaryngology Diagnoses Recurrent sinusitis Lisa Sanchez APRN [address] [place] [address] [facility] [address] [place] [address] Referral ID Status Reason Start Date Expiration Date V isits Requested Visits Authorized [id number] Closed Consult, Test & Treat PCP Updated and/or Approved 09/29/2021 03/29/2022 6 6 Encounter Details Date Type Department Care Team (Latest Contact Info) Description 09/29/2021 Transcribe [place] [phone] Lisa Sanchez APRN [address] [place] [address] Recurrent sinusitis Social History Tobacco Use Types Packs/Day Years Used Date Smoking Tobacco: Every Day Cigarettes Smokeless Tobacco: Never Sex and Gender Information Value Date Recorded Sex Assigned at Not on file Gender Identity Not on file Sexual Orientation Not on file documented as of this encounter Plan of Treatment Scheduled Referrals Name Type Priority Associated Diagnoses Orde r Schedule Referral to ENT Outpatient Referral Routine Recurrent sinusitis Ordered: 09/29/2021 documented as of this encounter Visit Diagnoses Diagnosis Recurrent sinusitis Unspecified sinusitis (chronic) documented in this encounter Care Teams Workcell Operator Relationship Specialty Start Date End Date Lisa Sanchez, MONOGRAM AND LETTER PASTER [address] [place] [address] PCP - General Family Medicine 09/26/20 documented as of this encounter
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
--- OUTSIDE RECORDS SUMMARY | 2024-07-24 00:31 | XMS_ITS | Encounter Summary ---
[place] [address] Care Team Providers Care Slip Cover Seamstress Name Role Phone Lisa Sanchez APRN Primary Care Provider + Reason for Referral * Diagnostic Test (Routine) - Closed Specialty Diagnoses / Procedures Referred By Nikki sage Referred To Contact Radiology Diagnoses Chronic rhinosinusitis Procedures CT Sinus wo Contrast (Generic) Zenaida Hewitt MD [facility] [place] [address] [facility] [place] [address] Referral ID Status Reason Start Date Expiration Date V isits Requested Visits Authorized [id number] Closed Specialty Service Requested 04/06/2022 06/04/2022 1 1 Reason for Visit * Diagnostic Test (Routine) - Closed Specialty Diagnoses / Procedures Referred By Nikki sage Referred To Contact Radiology Diagnoses Chronic rhinosinusitis Procedures CT Sinus wo Contrast (Generic) Zenaida Hewitt MD [facility] [place] [address] [facility] [place] [address] Referral ID Status Reason Start Date Expiration Date V isits Requested Visits Authorized [id number] Closed Specialty Service Requested 04/06/2022 06/04/2022 1 1 Encounter Details Date Type Department Care Team (Latest Contact Info) Description 04/30/2022 1:09 PM EDT - 04/30/2022 11:59 PM EDT Hospital [place] [address] Jolanta King MD [facility] [place] [address] Chronic rhinosinusitis Discharge Disposition: Home Social History Tobacco Use Types Packs/Day Years Used Date Smoking Tobacco: Every Day Cigarettes 0.5 8 Smokeless Tobacco: Never Sex and Gender Information Value Date Recorded Sex Assigned at Not on file Gender Identity Not on file Sexual Orientation Not on file documented as of this encounter Medications at Time of Discharge Medication Sig Dispensed Refills Start Date End Date amLODIPine (Norvasc) 10 mg Tablet Take 7.5 mg by mouth daily. azelastine-fluticasone (Dymista) 137-50 mcg/spray [place], Non-Aerosol 1 spray by Nasal route 2 times daily. 23 g 3 03/26/2022 FLUoxetine (PROzac) 20 mg Capsule 09/07/2020 ibuprofen (Advil;Motrin) 600 mg Tablet TK 1 T PO QID 06/21/2020 multivitamin (THERAGRAN) Tablet Take 1 tablet by mouth daily. turmeric root extract 500 mg Capsule Take by mouth. loratadine (Claritin) 10 mg Tablet Take 10 mg by mouth daily. docusate sodium (Colace) 100 mg Capsule Take 200 mg by mouth daily. documented as of this encounter Plan of Treatment Not on file documented as of this encounter Procedures Procedure Name Priority Date/Time Associated Diagnosis Comments CT SINUS W CONTRAST Routine 04/30/2022 1:18 PM EDT Chronic rhinosinusitis documented in this encounter Results * CT Sinus wo Contrast (Generic) (04/30/2022 1:18 PM EDT) Anatomical Region Laterality Modality Head Computed Tomogra phy 04/30/2022 1:35 PM EDT Impressions 04/30/2022 1:48 PM EDT Minimal amount of inflammation within the right sphenoid sinus otherwise paranasal sinuses are well-aerated. Thank you for letting us participate in the care of this patient. ??If you are a health care provider and have any questions regarding this report, please contact the number below. ??For patients who have questions please contact the health rn transitional care that requested your imaging first. ? Narrative 04/30/2022 1:48 PM EDT EXAMINATION: CT SINUS WO CONTRAST (GENERIC) CLINICAL HISTORY: Sinusitis, chronic or recurrent TECHNIQUE: CT sinus performed without intravenous contrast administration. COMPARISON: None FINDINGS: Small amount of bubbly secretions layer dependently within the right sphenoid sinus recess, otherwise no sinus inflammation identified. Bilateral ostiomeatal units are patent. Mild rightward nasal septal deviation. Orbits are normal. No intracranial abnormalities. Procedure Note Sarmad Knutson MD - 04/30/2022 EXAMINATION: CT SINUS WO CONTRAST (GENERIC) CLINICAL HISTORY: Sinusitis, chronic or recurrent TECHNIQUE: CT sinus performed without intravenous contrast administration. COMPARISON: None FINDINGS: Small amount of bubbly secretions layer dependently within the rightsphenoid sinus recess, otherwise no sinus inflammation identified. Bilateralostiomeatal units are patent. Mild rightward nasal septal deviation. Orbits arenormal. No intracranial abnormalities. IMPRESSION Minimal amount of inflammation within the right sphenoid sinus otherwise paranasal sinuses are well-aerated. Thank you for letting us participate in the care of this patient. If youare a health care provider and have any questions regarding this report,please contact the number below. For patients who have questions please contactthe health rn transitional care that requested your imaging first. Jolanta King MD IMG CT ORDERABLES documented in this encounter Visit Diagnoses Diagnosis Chronic rhinosinusitis Unspecified sinusitis (chronic) documented in this encounter Care Teams Slip Cover Seamstress Relationship Specialty Start Date End Date Lisa Sanchez, VEGETABLE HANDLER [address] [place] [address] PCP - General Family Medicine 09/26/20 documented as of this encounter
--- OUTSIDE RECORDS SUMMARY | 2024-07-24 00:31 | XMS_ITS | Encounter Summary ---
Author Organization [facility] Address [address] [place] [address] Care Team Providers Care Wire Wrapper Machine Operator Name Role Phone Antonio Carrizales MD Primary Care Provider Un available Encounter Details Date Type Department Care Team (Late st Contact Info) Description 09/16/2019 Lab Requisition [facility] Pathology & Laboratory Medicine - [address] [address] Isreal Sherman MD [address] [place] [address] Encounter for screening for malignant neoplasm of cervix; Encounter for screening for human papillomavirus (HPV) Social History Tobacco Use Types Packs/Day Years [...] Name Priority Date/Time Associated Diagnosis Comments PAP TEST Today 09/15/2019 17:40 EST documented in this encounter Results * PAP TEST (09/15/2019 17:40 EST) Specimens A. Cervix and/or Endocervix, , ThinPrep Imaging System with Manual Evaluation 09/23/2019 11:10 EST [facility] Specimen Adequacy Satisfactory for Evaluation - transformation zone component present 09/23/2019 11:10 EST [facility] General Categorization Epithelial Cell Abnormality 09/23/2019 11:10 EST [facility] Descriptive Diagnosis Squamous Cell Abnormality - Atypical squamous cells, cannot exclude high grade squamous intraepithelial lesion (ASC-H). 09/23/2019 11:10 [facility] Attestation By the signature below, the attending physician certifies that they have personally conducted a gross and/or microscopic examination of the described specimens and rendered or confirmed the above diagnosis. 09/23/2019 11:10 [facility] at [address] Educational Comments [facility] recommends following ASCCP's 2012 Updated Consensus Guidelines for the Management of Abnormal Cervical Cancer Screening Tests and Cancer Precursors (JLGTD, 2013; 17(5):S1-S27). Consensus guidelines are available online at www.asccp.org. 09/23/2019 11:10 [facility] Clinical History SEE ORDER COMMMENTS 09/23/2019 11:10 [facility] Scanned Images 09/23/2019 11:10 [facility] Papanicolaou smear specimen (specimen) CERVIX UTERI STRUCTURE / Unknown 09/15/2019 17:40 EST 09/17/2019 9:39 EST Isreal Sherman MD PATHOLOGY ORDERABLES Final Re sult [facility] [address] [place] [address] documented in this encounter Visit Diagnoses Diagnosis Encounter for screening for malignant neoplasm of cervix Screening for malignant neoplasm of the cervix Encounter for screening for human papillomavirus (HPV) Special screening examination for human papillomavirus (HPV) documented in this encounter Care Teams Wire Wrapper Machine Operator Relationship Specialty Start Date End Date Antonio Carrizales MD PCP - General 11/22/11 04/30/23 documented as of this encounter
--- OUTSIDE RECORDS SUMMARY | 2024-07-24 00:31 | XMS_ITS | Encounter Summary ---
Author Organization [facility] [place] [address] Care Team Providers Care Public Records Researcher Name Role Phone Lisa Sanchez APRN Primary Care Provider + Encounter Details Date Type Department Care Team (Late st Contact Info) Description 08/07/2022 Telephone Otolaryngology at [facility] [place] [phone] Skye Reynoso Social History Tobacco Use Types Packs/Day Years Used Date Smoking Tobacco: Every Day Cigarettes 0.5 8 Smokeless Tobacco: Never Sex and Gender Information Value Date Recorded Sex Assigned at Not on file Gender Identity Not on file Sexual Orientation Not on file documented as of this encounter Miscellaneous Notes * Telephone Encounter - Skye Reynoso - 08/07/2022 8:23 AM EST Pt called requesting to cancel appt, she does not feel she needs it. documented in this encounter Plan of Treatment Not on file documented as of this encounter Visit Diagnoses Not on filedocumented in this encounter Care Teams Public Records Researcher Relationship Specialty Start Date End Date Lisa Sanchez APRN [address] [place] [address] PCP - General Family Medicine 09/26/20 documented as of this encounter
--- OUTSIDE RECORDS SUMMARY | 2024-07-24 00:31 | XMS_ITS ---
Author Organization Unknown Address [address] [place] [phone] Phone Care Team Providers Care Crisis Worker Name Role Phone NOY MIXON Attending Unavailable BLANCA Lawson Primary Unavailable Social History Type Status Start Date End Date Code Code Syst em Smoking History Former smoker [id number] SNOMED CT Sex Female Hospital Discharge Instructions [...] Code Code System SULFA (sulfonamide) Rash (SNOMED-CT: 757068501), ABD pain (SNOMED-CT: 98893028) Active 81575808 SNOMED-CT LATEX YEAST INFECTION (SNOMED-CT: null) Moderate Active 1786517 RxNorm ROFECOXIB THROAT FELT LIKE CLOSING (SNOMED-CT: null), VIOXX (SNOMED-CT: null) Moderate Active 579805 RxNorm LAMICTAL Rash (SNOMED-CT: 589305170), FACIAL RASH (SNOMED-CT: null) Active 691082 RxNorm TOPAMAX Rash (SNOMED-CT: 183086400), FACIAL RASH (SNOMED-CT: null) Active 907732 RxNorm Plan of Treatment Pre-Op Covid-19 Testing 05/28/2020 Encounters Encounter Diagnosis Start Date Code Code Sys tem 12/10/2023 [id number] SNOMED-CT Personal Care Team Section Performer Name Performer Role Active Date Inactive Da te
--- OUTSIDE RECORDS SUMMARY | 2024-07-24 00:31 | XMS_ITS | Encounter Summary ---
Author Organization [place] [address] Care Team Providers Care Railroad Car Checker Name Role Phone Lisa Sanchez APRN Primary Care Provider + Encounter Details Date Type Department Care Team (Late st Contact Info) Description 02/01/2022 Tele[place] [phone] Skye Reynoso Social History Tobacco Use Types Packs/Day Years Used Date Smoking Tobacco: Every Day Cigarettes Smokeless Tobacco: Never Sex and Gender Information Value Date Recorded Sex Assigned at Not on file Gender Identity Not on file Sexual Orientation Not on file documented as of this encounter Miscellaneous Notes * Telephone Encounter - Skye Reynoso - 02/01/2022 11:26 AM EDT I received a phone call from Pricilla at [facility] requesting if the referral sent in Sep wason file. I confirmed the referral was received and I would contact the pt to schedule an appt. documented in this encounter Plan of Treatment Not on file documented as of this encounter Visit Diagnoses Not on filedocumented in this encounter Care Teams Railroad Car Checker Relationship Specialty Start Date End Date Lisa Sanchez APRN [address] [place] [address] PCP - General Family Medicine 09/26/20 documented as of this encounter
--- OUTSIDE RECORDS SUMMARY | 2024-07-24 00:31 | XMS_ITS | Encounter Summary ---
Author Organization [facility] [address] Care Team Providers Care Compliance Lead Name Role Phone Lisa Sanchez APRN Primary Care Provider + Encounter Details Date Type Department Care Team (Late st Contact Info) Description 02/01/2022 Telephone [place] [phone] Skye Reynoso Social History Tobacco Use Types Packs/Day Years Used Date Smoking Tobacco: Every Day Cigarettes Smokeless Tobacco: Never Sex and Gender Information Value Date Recorded Sex Assigned at Not on file Gender Identity Not on file Sexual Orientation Not on file documented as of this encounter Miscellaneous Notes * Telephone Encounter - Skye Reynoso - 02/01/2022 11:27 AM EDT I spoke with Dulce to schedule an appointment, pt has been seen off an on her whole life. Last time she was seen was at [facility] notes in care everywhere indicate it has been a long time since this ptwas seen for this issue, pt also indicates there is no recent sinus imaging. Scheduled pt's appointment. documented in this encounter Plan of Treatment Not on file documented as of this encounter Visit Diagnoses Not on filedocumented in this encounter Care Teams Compliance Lead Relationship Specialty Start Date End Date Lisa Sanchez APRN [address] [place] [address] PCP - General Family Medicine 09/26/20 documented as of this encounter
--- OUTSIDE RECORDS SUMMARY | 2024-07-24 00:31 | XMS_ITS | Encounter Summary ---
Author Organization [facility] Address [address] [place] [address] Care Team Providers Care Salvage Engineer Name Role Phone Unavailable Primary Care Provider Unavailabl e Encounter Details Date Type Department Care Team (Late st Contact Info) Description 07/25/2007 Results Only [facility] - Maple conversion [address] [place] [address] Pawan Cisneros MD Social History Tobacco Use [...] Procedure Name Priority Date/Time Associated Diagnosis Comments CHLAMYDIA/GC AMPLIFIED PROBE Routine 07/25/2007 16:02 EST CYTOPATHOLOGY Routine 07/25/2007 0:00 EST documented in this encounter Results * CHLAMYDIA/GC AMPLIFIED PROBE (07/25/2007 16:02 EST) Specimen Description Cervix [facility] Result No Chlamydia trachomatis or Neisseria gonorrhoeae DNA detected by metal cleaner mediated amplification. [facility] Report Status Final [id number] [facility] 07/25/2007 16:0 2 EST 07/25/2007 20:45 EST us Provider Unknown MICROBIOLOGY - GENERAL ORDER IDANIA Final Result [facility] [address] [place] [address] * CYTOPATHOLOGY (07/25/2007 0:00 EST) Pathology Report: CYTOPATHOLOGY REPORT Reports generated via electronic interface contain original data; however they are lacking the format of the original report. Caution should be taken when reading/interpreti ng unformatted reports. Name: ? SATNAM GUAMAN ? Accession #: ? [id number] : ? 1975 (Age: 31) ??F ?Collect Date: ? 07/25/2007 Location: ? [facility] ? Receive Date: ? 07/28/2007 Provider: ?PAWAN CISNEROS MD Copy to: ? Specimen/Source: ?ThinPrep Pap Test, Cervix/Endocervix, processed on [employer] ThinPrep Imaging System, with manual evaluation Last Menstrual Period: ? 06/23/07 Hormonal/Contracep tive Status: ? Tubal ligation: BTL 05 Other: ? HPVA - HPV testing requested if ASC-US on the current ThinPrep Pap test. ? SPECIMEN ADEQUACY ? Satisfactory for Evaluation - transformation zone component present GENERAL CATEGORIZATION ? Negative for Intraepithelial Lesion or Malignancy ? Document reviewed and electronically signed by: ? MILLIE Snowden(ASCP) ? Report Date: ??07/30/2007 08:04 End of Report [facility] 07/25/2007 07/28/2007 us Pawan Cisneros MD PATHOLOGY ORDERABLES Final Res ult [facility] [address] [place] [address] documented in this encounter Visit Diagnoses Not on filedocumented in this encounter
--- OUTSIDE RECORDS SUMMARY | 2024-07-24 00:31 | XMS_ITS | Encounter Summary ---
Author Organization [facility] [place] [address] Care Team Providers Care Crusher Loader Operator Name Role Phone Unavailable Primary Care Provider Unavailabl e Encounter Details Date Type Department Care Team (Late st Contact Info) Description 09/14/2020 2:25 PM EST Ancillary Procedure Radiology Library at [facility] [place] [address] Lisa Sanchez APRN [address] [place] [address] Social History Tobacco Use Types Packs/Day Years Used Date Smoking Tobacco: Never Assessed Sex and Gender Information Value Date Recorded Sex Assigned at Not on file Gender Identity Not on file Sexual Orientation Not on file documented as of this encounter Plan of Treatment Not on file documented as of this encounter Procedures Procedure Name Priority Date/Time Associated Diagnosis Comments FILM LIBRARY STORAGE ONLY MR SPINE Routine 09/14/2020 2:21 PM EST documented in this encounter Results * Film Library- Storage Only MR Spine (09/14/2020 2:21 PM EST) Narrative RAD - 09/14/2020 2:21 PM EST This exam is auto-finalizing. It's purpose is for storage only. Lisa Sanchez APRN IMG FILM LIBRARY ORDERABLES [place], [place] documented in this encounter Visit Diagnoses Not on filedocumented in this encounter
--- OUTSIDE RECORDS SUMMARY | 2024-07-24 00:31 | XMS_ITS | Encounter Summary ---
Author Organization [facility] Address [address] [place] [address] Care Team Providers Care Area Supervisor Name Role Phone Unavailable Primary Care Provider Unavailabl e Encounter Details Date Type Department Care Team (Late st Contact Info) Description 06/17/2006 Results Only [facility] - [facility] conversion [address] [place] [address] Pawan Cisneros MD Social History Tobacco Use [...] Priority Date/Time Associated Diagnosis Comments CYTOPATHOLOGY Routine 06/17/2006 0:00 EST documented in this encounter Results * CYTOPATHOLOGY (06/17/2006 0:00 EST) Pathology Report: CYTOPATHOLOGY REPORT Reports generated via electronic interface contain original data; however they are lacking the format of the original report. Caution should be taken when reading/interpreti ng unformatted reports. Name: ? SATNAM GUAMAN ? Accession #: ? [id number] : ? 1975 (Age: 30) ??F ?Collect Date: ? 06/17/2006 Location: ? [facility] ? Receive Date: ? 06/18/2006 Provider: ?PAWAN CISNEROS MD Copy to: ? Specimen/Source: ?ThinPrep Pap Test, Cervix/Endocervix, processed on [email or web address] ThinPrep Imaging System, with manual evaluation Last Menstrual Period: ? 06/20/06 Hormonal/Contracep tive Status: ? Tubal ligation: Bilateral 2005 Other: ? HPVA - HPV testing requested if ASC-US on the current ThinPrep Pap test. ? SPECIMEN ADEQUACY ? Satisfactory for Evaluation - transformation zone component present GENERAL CATEGORIZATION ? Negative for Intraepithelial Lesion or Malignancy ? Document reviewed and electronically signed by: ? MILLIE Snowden(ASCP) ? Report Date: ??06/24/2006 16:14 End of Report [facility] 06/17/2006 06/18/2006 us Pwaan Cisneros MD PATHOLOGY ORDERABLES Final Res ult [facility] [address] [place] [address] documented in this encounter Visit Diagnoses Not on filedocumented in this encounter
--- OUTSIDE RECORDS SUMMARY | 2024-07-24 00:31 | XMS_ITS | Encounter Summary ---
Author Organization [facility] Address [address] [place] [address] Care Team Providers Care Business Management Analyst Name Role Phone Antonio Carrizales MD Primary Care Provider Un available Encounter Details Date Type Department Care Team (Late st Contact Info) Description 01/06/2022 Lab Requisition [facility] Pathology & Laboratory Medicine - [address] [address] Outr Resulting Lab, Provider Social History Tobacco Use Types Packs/Day Years Used Date Smoking Tobacco: Never Assessed Interpersonal Safety Answer Date Record ed Physically Hurt Never 03/13/2020 Verbally Threaten Not on file 03/13/2020 Comments Unknown Sex and Gender Information Value Date Recorded Sex Assigned at Not on file Legal Sex Female 18:07 EST Gender Identity Not on file Sexual Orientation Not on file documented as of this encounter Plan of Treatment Not on file documented as of this encounter Procedures Procedure Name Priority Date/Time Associated Diagnosis Comments HEPATITIS B SURFACE ANTIBODY Routine 01/05/2022 14:30 EDT documented in this encounter Results * HEPATITIS B SURFACE ANTIBODY (01/05/2022 14:30 EDT) Hep B Surface Ab, Quantitative 68.2 See Note mIU/mL 01/08/2022 10:27 EDT [facility] Comment: Reference Range for Hep B Surface Ab, Quant: Positive: >= 10.0 mIU/mL Negative: ??< 10.0 mIU/mL Patient is presumed to be immune to infection with Hepatitis B Virus. Hep B Surface Ab, Qualitative Positive See Note 01/08/2022 10:27 EDT [facility] Comment: Reference Range for Hep B Surface Ab, Qual: Unvaccinated: ??Negative Vaccinated: ??Positive Blood VENOUS BLOOD / Unknown 01/05/2022 14:30 EDT 01/06/2022 22:12 EDT us Provider Outr Resulting Lab CHEMISTRY & BLOOD GA S ORDERABLES Final Result Performing Organization Address City/State/[facility] Co de Phone Number [facility] [address] [place] [address] documented in this encounter Visit Diagnoses Not on filedocumented in this encounter Care Teams Business Management Analyst Relationship Specialty Start Date End Date Antonio Carrizales MD PCP - General 11/22/11 04/30/23 documented as of this encounter
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
--- OUTSIDE RECORDS SUMMARY | 2024-07-24 00:31 | XMS_ITS | Encounter Summary ---
Author Organization [facility] [place] [address] Care Team Providers Care Bike Mechanic Name Role Phone Lisa Sanchez NAKIA Primary Care Provider + Reason for Visit * Reason Comments Follow-up Everything is still the same Little blood Encounter Details Date Type Department Care Team (Late st Contact Info) Description 04/30/2022 4:00 PM EDT Office [place] [address] Jolanta King MD [facility] [place] [address] Chronic rhinitis Social History Tobacco Use Types Packs/Day Years Used Date Smoking Tobacco: Every Day Cigarettes 0.5 8 Smokeless Tobacco: Never Sex and Gender Information Value Date Recorded Sex Assigned at Not on file Gender Identity Not on file Sexual Orientation Not on file documented as of this encounter Last Filed Vital Signs Vital Sign Reading Time Taken Comments Blood Pressure - - Pulse - - Temperature - - Respiratory Rate - - Oxygen Saturation - - Inhaled Oxygen Concentration - - Weight 56.7 kg (125 lb) 04/30/2022 3:39 PM EDT Height 157.5 cm (5' 2) 04/30/2022 3:39 PM EDT Body Mass Index 22.86 04/30/2022 3:39 PM EDT documented in this encounter Progress Notes * Jolanta King MD - 04/30/2022 4:00 PM EDT [facility] Otolaryngology - Head and Neck Surgery Jolanta King MD 04/30/22 3:57 PM [place] [address] Office Patient Name: Immanuel Guaman Date of : 1975 PCP: Lisa Sanchez APRN Chief Complaint/History of Present Illness: Immanuel Guaman is a 46 y.o. year old seen in follow up. History was obtained from the patient as well as through chart review. She had been seen previously with nasal and sinus congestion and occasional epistaxis. She was started on dymista and notes minimal improvement in symptoms. CT sinuswas also obtained today which we will review further below. The epistaxis has resolved, she does note some dryness issues particularly during the winter, they have a pellet stove at home. She has been on several allergy nasal sprays and takes PO allergy medication as well. Still notes generalized congestion, otherwise doing well. 10 point Review of Systems was normal except for pertinent positives and negatives included in the History of Present Illness. Past Medical and Surgical History Patient Active Problem List Diagnosis Code ??? Low back pain, non-specific M54.50 ??? Chronic rhinosinusitis J31.0, J32.9 Current Outpatient Medications on File Prior to Visit Medication Sig Dispense Refill ??? amLODIPine (Norvasc) 10 mg Tablet Take 7.5 mg by mouth daily. ??? azelastine-fluticasone (Dymista) 137-50 mcg/spray Frazer, Non-Aerosol 1 spray by Nasal route 2 times daily. 23 g 3 ??? FLUoxetine (PROzac) 20 mg Capsule ??? ibuprofen (Advil;Motrin) 600 mg Tablet TK 1 T PO QID ??? multivitamin (THERAGRAN) Tablet Take 1 tablet by mouth daily. ??? turmeric root extract 500 mg Capsule Take by mouth. ??? loratadine (Claritin) 10 mg Tablet Take 10 mg by mouth daily. ??? docusate sodium (Colace) 100 mg Capsule Take 200 mg by mouth daily. No current facility-administered medications on file prior to visit. Allergies: Lamotrigine (bulk) and Sulfa (sulfonamide antibiotics) Surgical History: No past surgical history on file. Family and Social History Family History: No family history on file. Social History: Lives [place] [address] Social History Socioeconomic History ??? Marital status: Single Spouse name: Not on file ??? Number of children: Not on file ??? Years of education: Not on file ??? Highest education level: Not on file Occupational History ??? Not on file Tobacco Use ??? Smoking status: Current Every Day Smoker Packs/day: 0.50 Years: 8.00 Pack years: 4.00 Types: Cigarettes ??? Smokeless tobacco: Never Used Vaping Use ??? Vaping Use: Never used Substance and Sexual Activity ??? Alcohol use: Not on file ??? Drug use: Not on file ??? Sexual activity: Not on file Other Topics Concern ??? Not on file Social History Narrative ??? Not on file Social Determinants of Health Financial Resource Strain: Not on file Food Insecurity: Not on file Transportation Needs: Not on file Physical Activity: Not on file Housing Stability: Not on file Physical Exam Temperature: Heart Rate: Blood Pressure: Respiratory Rate: SpO2: General: Awake, alert, and oriented to person, place and time. No acute distress Head and Face: Head is normocephalic, atraumatic. Facial resting tone symmetric. Eyes: Conjugate gaze, ocular motility intact bilaterally. PERRL. Neurologic: Cranial Nerves II-XII grossly intact and symmetric. Ears: External ear and ear canal are without deformity. Hearing is grossly normal. Nose: External nose is midline without deformity or lesion. Anterior rhinoscopy reveals a straight septum, turbinates normal in size. Oral: There are no visible or palpable buccal, gingival, lingual, or palatal lesions. The floor of mouth is soft and flat. Oropharynx: Symmetric without tonsillar pathology. No other concerning lesions or masses Larynx:No hoarseness or stridor. External laryngeal structures normal to palpation. Face and sinuses are non tender. Salivary glands are soft, non tender, without palpable masses. No temporomandibular joint grinding or locking. Neck: Symmetric. No scars, palpable masses, or crepitus. Midline trachea. Thyroid normal in size, non tender, no palpable mass. Lymphatic: no palpable cervical lymphadenopathy. Pulmonary: Breathing comfortably. Symmetric chest expansion without use of accessory muscles or retraction. Skin: Good skin turgor, no pallor, no icterus. Extremities: No gross deformities, no peripheral edema. Labs and Imaging Significant lab values are as follows: I reviewed the following imaging studies: EXAMINATION: CT SINUS WO CONTRAST (GENERIC) ?? CLINICAL HISTORY: Sinusitis, chronic or recurrent ? TECHNIQUE: CT sinus performed without intravenous contrast administration. ?? COMPARISON: None ?? FINDINGS: Small amount of bubbly secretions layer dependently within the right sphenoid sinus recess, otherwise no sinus inflammation identified. Bilateral ostiomeatal units are patent. Mild rightward nasal septal deviation. Orbits are normal. No intracranial abnormalities. ?? IMPRESSION Minimal amount of inflammation within the right sphenoid sinus otherwise paranasal sinuses are well-aerated. ?? Thank you for letting us participate in the care of this patient. If you are a health care provider and have any questions regarding this report, please contact the number below. For patients who have questions please contact the health child care attendant school that requested your imaging first. Electronically signed by: Sarmad Knutson [facility] ([phone]), at 04/30/2022 1:48 PM Procedures ASSESSMENT & RECOMMENDATIONS Immanuel Guaman is a 46 y.o. with nasal and sinus congestion. Recommendations: 1. CT was reviewed and we agreed this was reassuring. Given the number of sprays and allergy medications she is on we wonder if her symptoms are more due to excessive dryness. For now she will use just ayr gel and her PO allergy medications. F/u in 3 months. Jolanta King MD Otolaryngology - Head and Neck Surgery 04/30/22 3:57 PM documented in this encounter Plan of Treatment Not on file documented as of this encounter Visit Diagnoses Diagnosis Chronic rhinitis documented in this encounter Care Teams Bike Mechanic Relationship Specialty Start Date End Date Lisa Sanchez, [employer] SALES COUNTER MANAGER [address] [place] [address] PCP - General Family Medicine 09/26/20 documented as of this encounter
--- OUTSIDE RECORDS SUMMARY | 2024-07-24 00:31 | XMS_ITS | Encounter Summary ---
Author Organization [facility] Address [address] [place] [id number] Care Team Providers Care Job Printer Apprentice Name Role Phone Antonio Carrizales MD Primary Care Provider Un available Encounter Details Date Type Department Care Team (Late st Contact Info) Description 11/22/2011 Results Only [facility] - [facility] ([facility] [address] [place] [phone] Pawan Cisneros MD Social History Tobacco Use [...] Diagnosis Comments PAP TEST- RESULT ONLY Routine 11/22/2011 0:00 EDT documented in this encounter Results * PAP TEST- RESULT ONLY (11/22/2011 0:00 EDT) Pathology Report: CYTOPATHOLOGY REPORT Reports generated via electronic interface contain original data; however they are lacking the format of the original report. Caution should be taken when reading/interpreti ng unformatted reports. Name: ? SATNAM GUAMAN ? Accession #: ? [id number] : ? 1975 (Age: 36) ??F ?Collect Date: ? 11/22/2011 Location: ? [facility] ? Receive Date: ? 11/23/2011 Provider: ?PAWAN CISNEROS MD Copy to: ? Specimen/Source: ?Pap Test, Cervix/Endocervix, ThinPrep Imaging System with manual evaluation Last Menstrual Period: ? n/a Hormonal/Contracep tive Status: ? Tubal ligation: BTL '01 Treatment History: ? Miscellaneous treatment: Endometrial Ablation 11/18 ? SPECIMEN ADEQUACY ? Satisfactory for Evaluation - transformation zone component present GENERAL CATEGORIZATION ? Negative for Intraepithelial Lesion or Malignancy INTERPRETATION ? Reactive cellular changes associated with inflammation present (includes repair). ? Document reviewed and electronically signed by: ? REGULO ONEILL MD ? Report Date: ??11/30/2011 13:19 End of Report [facility] 11/22/2011 11/23/2011 us Pawan Cisneros MD PATHOLOGY ORDERABLES Final Res ult [facility] [address] [place] [address] documented in this encounter Visit Diagnoses Not on filedocumented in this encounter Care Teams Job Printer Apprentice Relationship Specialty Start Date End Date Antonio Carrizales MD PCP - General 11/22/11 04/30/23 documented as of this encounter
--- OUTSIDE RECORDS SUMMARY | 2024-07-24 00:31 | XMS_ITS | Clinical Summary ---
Author Organization [facility] Address [address] [place] [address] Care Team Providers Care Machine Adjuster Leader Name Role Phone Unavailable Primary Care Provider Unavailabl e Social History Tobacco Use Types Packs/Day Years Used Date Smoking Tobacco: Never Assessed Interpersonal Safety Answer Date Record ed Physically Hurt Never 03/13/2020 Verbally Threaten Not on file 03/13/2020 Comments Unknown Sex and Gender Information Value Date Recorded Sex Assigned at Not on file Legal Sex Female 18:07 EST Gender Identity Not on file Sexual Orientation Not on file Plan of Treatment Health Maintenance Due Date Last Done Comments Hepatitis C Screen 1975 Hepatitis B Vaccine (1 of 3 - 19+ 3-dose series) 10/14 COVID-19 Vaccine ( season) [address] [place] [address] [facility]
--- OUTSIDE RECORDS SUMMARY | 2024-07-24 00:31 | XMS_ITS | Encounter Summary ---
Author Organization [facility] Address [address] [place] [address] Care Team Providers Care Chemical Project Engineer Name Role Phone Antonio Carrizales MD Primary Care Provider Un available Encounter Details Date Type Department Care Team (Latest Contact Info) Description 12/18/2012 13:17 EDT - 12/18/2012 13:19 EDT Hospital Encounter [address] [address] Pawan Peters MD Discharge Disposition: Home or Self Care Social History Tobacco Use Types Packs/Day Years Used Date Smoking Tobacco: Never Assessed Comments Unknown Sex and Gender Information Value Date Recorded Sex Assigned at Not on file Legal Sex Female 18:07 EST Gender Identity Not on file Sexual Orientation Not on file documented as of this encounter Discharge Disposition Disposition Code Departure Means Destination Home or Self Care documented in this encounter Plan of Treatment Not on file documented as of this encounter Visit Diagnoses Not on filedocumented in this encounter Care Teams Chemical Project Engineer Relationship Specialty Start Date End Date Antonio Carrizales MD PCP - General 11/22/11 04/30/23 documented as of this encounter
--- OUTSIDE RECORDS SUMMARY | 2024-07-24 00:31 | XMS_ITS | Encounter Summary ---
Author Organization [facility] Address [address] [place] [address] Care Team Providers Care Bow Tacker Name Role Phone Unavailable Primary Care Provider Unavailabl e Encounter Details Date Type Department Care Team (Late st Contact Info) Description 11/13/2005 Before PRISM Converted Visit (Maple) [facility] - Maple conversion [address] [place] [address] Artemio Paiz MD [address] [place] [phone] Social History Tobacco Use Types Packs/Day Years Used Date Smoking Tobacco: Never Assessed Comments Unknown Sex and Gender Information Value Date Recorded Sex Assigned at Not on file Legal Sex Female 18:07 EST Gender Identity Not on file Sexual Orientation Not on file documented as of this encounter Progress Notes * Artemio aPiz MD - 08/05/2009 0655 EST [facility] PRO[facility]ESS/FOLLOWUP NOTE - 11/27/2005 PROBLEM: Followup sinusitis. SUBJECTIVE: The patient is doing well, no new problems, seems to be doing better. CT scans are read and reviewed with the patient. This shows right sphenoid partial opacification consistent with right sphenoid sinusitis. She was started on Avelox and still has three more days to go and is doing fairly well. OBJECTIVE: No facial pain or tenderness. IMPRESSION: Right sphenoid sinusitis, currently on Avelox. PLAN: The patient will finish a course of antibiotics, will repeat a CT scan in two weeks unless she becomes asymptomatic, and will followup in three weeks or p.r.n. Signed by Artemio Paiz MD 11/27/2005 17:04 Meme Simpson MD Artemio Paiz MD - Artemio Paiz MD P - lgr Job ID: [id number] Document ID: [id number] cc: documented in this encounter Consult Notes * Artemio Paiz MD - 07/23/2009 8140 EST [facility]ATION - 11/13/2005 CHIEF COMPLAINT: Sinus pressure. HPI: This is a 30-year-old female with a greater than 10 year history of sinus pressure and pain, mostly over the frontal and maxillary areas. Her symptoms are of moderate severity, constant, occurring every day, sometimes involving dental pain. also complains of decreased smell, postnasal drip, sometimes associated ear pain, and spicy foods causing a burning sensation inside. Her symptoms are year round, not seasonal. Occasionally, she will feel okay for two weeks or less. She has taken antibiotics in the past and this will sometimes help and other times will not. No associated fevers or rhinorrhea. PAST MEDICAL HISTORY: Significant for depression. PAST SURGICAL HISTORY: Miscarriage, endometriosis, tubal ligation, splenectomy, and endo hysterectomy. ALLERGIES: VIOXX AND IBUPROFEN. FAMILY HISTORY: Significant for allergies, asthma, and migraines. SOCIAL HISTORY: The patient quit smoking two and a half months ago. REVIEW OF SYSTEMS: Significant for environmental allergies, night sweats, glasses, shortness of breath, wheezing, urinary tract infections, skin rashesprevious blood transfusions, headaches, and depression; otherwise negative for multiple system reviews. PHYSICAL EXAM: General - Well developed, well nourished, cooperative adult female in no acute distress. Normal voice. Vital signs - Height 5 foot 3 inches, weight 110 pounds, blood pressure 110/68, pulse 84, respirations 16, temperature 99.0. The face is normal without lesions. is tenderness to palpation over both cheeks. glands are normal. Facial strength is symmetric. Eye exam is normal. Ears -External ears are normal. The canals are clear. Tympanic membranes are normal. Hearing is intact bilaterally. Nose - Nasal dorsum is midline. The airway is patent. There is a left nasal septal deviation and a right posterior septal spur. cavity - There is TMJ tenderness, clicking, and popping. Posterior pharynx is clear. Lips, tongue, floor of mouth, and buccal mucosa within normal limits. Neck -No pathologic lymphadenopathy. Trachea is midline. Thyroid is normal. Chest is clear to auscultation. Heart - Regular rate and rhythm. PROCEDURE: endoscopy is performed with topical anesthesia. No evidence of nasal polyps or purulence. The nasopharynx shows some adenoid tissue present. base of tongue, epiglottis, vallecula, piriformsinuses, false vocal cords, and true vocal cords are within normal limits with good bilateral true vocal cord motion. IMPRESSION: Nasal septal deviation, allergy, possible temporomandibular joint disorder. PLAN: Will schedule a limited CT scan of the paranasal sinuses. Followup after CT. Signed by Artemio Paiz MD 11/14/2005 10:04 Meme Simpson MD Artemio Paiz MD - Artemio Paiz MD P - lgr Job ID: [id number] Document ID: [id number] cc: Antonio Carrizales MD documented in this encounter Plan of Treatment Not on file documented as of this encounter Visit Diagnoses Not on filedocumented in this encounter
--- OUTSIDE RECORDS SUMMARY | 2024-07-24 00:31 | XMS_ITS | Encounter Summary ---
[place] [address] Care Team Providers Care Snow Removal/Plowing Name Role Phone Lisa Sanchez APRN Primary Care Provider + Reason for Referral * Diagnostic Test (Routine) - Closed Specialty Diagnoses / Procedures Referred By Nikki sage Referred To Contact Radiology Diagnoses Chronic rhinosinusitis Procedures CT Sinus wo Contrast (Generic) Zenaida Hewitt MD [facility] [place] [address] [facility] [place] [address] Referral ID Status Reason Start Date Expiration Date V isits Requested Visits Authorized [id number] Closed Specialty Service Requested 04/06/2022 06/04/2022 1 1 Reason for Visit * Consultation (Routine) - Closed Specialty Diagnoses / Procedures Referred By Nikki sage Referred To Contact Otolaryngology Diagnoses Recurrent sinusitis Lisa Sanchez APRN [address] [place] [phone] [facility] Otolaryngology [address] [place] [phone] Referral ID Status Reason Start Date Expiration Date V isits Requested Visits Authorized [id number] Closed Consult, Test & Treat PCP Updated and/or Approved 09/29/2021 03/29/2022 6 6 Encounter Details Date Type Department Care Team (Latest Contact Info) Description 03/26/2022 10:00 AM EDT Office [place] [phone] Jolanta King MD [facility] [place] [address] Chronic rhinosinusitis Social History Tobacco Use Types Packs/Day Years [...] - - Weight 56.7 kg (125 lb) 03/26/2022 9:49 AM EDT Height 157.5 cm (5' 2) 03/26/2022 9:49 AM EDT Body Mass Index 22.86 03/26/2022 9:49 AM EDT documented in this encounter Progress Notes * Jolanta King MD - 03/26/2022 10:00 AM EDT Agree with the above. Patient was seen and examined by myself along with Dr. Hewitt, and I agree withthe assessment and plan as detailed. Summary, 46-year-old female with history of nasal and sinus congestion. She has tried Flonase in the past without much significant improvement. Exam demonstrated a mildly deviated septum to the left anteriorly and then back to the right more posteriorly. We reviewed findings with the patient. We have recommended using Dymista for the nasal cavity with a CT scan to be done in 1 month with a follow-up with me at that time. We reviewed the proper technique for nasal spray use to help avoid nosebleeds. Jolanta King MD * Zenaida Hewitt MD - 03/26/2022 10:00 AM EDT 03/26/22 9:53 AM [place], [place] [address] Office Patient Name: Immanuel Guaman Date of : 1975 PCP: Lisa Sanchez APRN Chief Complaint/ History of Present Illness: Immnauel Guaman is a 46 y.o. year old who was seen today at the request of Lisa Sanchezin consultation for recurrent sinus infections. Immanuel Guaman is a 46 y.o. female with PMH who presents with recurrent sinus infections andchronic rhinosinusitis. Patient reports ~3 sinus infections/year, which occur predominantly in winter. However, she also endorses chronic allergy type symptoms which are worse in Fall. Symptoms include epiphora, frontal pressure and pain, nasal airway congestion and constant rhinorrhea. Patient endorses a poor sense of smell at baseline. She has seen an ENT in the past and they offered surgery for deviated septum, however, she did not proceed with this. She has tried Flonase but stopped due to epistaxis. She has not tried any nasal rinses because she cannot tolerate the sensation/burning. Patient takes Claritin daily with no significant relief of symptoms. No history of prior sinus or nasal surgery. Current tobacco use. Imaging has not been sent to our PACS system, but her PCP note reports MRI demonstrates mild sinusdisease. 10 point Review of Systems was normal except for pertinent positives and negatives included in the History of Present Illness. Past Medical and Surgical History Patient Active Problem List Diagnosis Code ??? Low back pain, non-specific M54.50 Current Outpatient Medications on File Prior to Visit Medication Sig Dispense Refill ??? amLODIPine (Norvasc) 10 mg Tablet Take 7.5 mg by mouth daily. ??? FLUoxetine (PROzac) 20 mg Capsule ??? [...] history on file. Social History: [place] [address] Social History Socioeconomic History ??? Marital status: Single Spouse name: Not on file ??? Number of children: Not on file ??? Years of education: Not on file ??? Highest education level: Not on file Occupational History ??? Not on file Tobacco Use ??? Smoking status: Current Every Day Smoker Packs/day: 0.50 Types: Cigarettes ??? Smokeless tobacco: Never Used [...] to person, place and time. No acute distress. Head and Face: Head is normocephalic, atraumatic. Facial resting tone symmetric. Eyes: Conjugate gaze, ocular motility intact bilaterally. PERRL. Neurologic: Cranial Nerves II-XII grossly intact and symmetric. Ears: External ear and ear canal are without deformity. Hearing is grossly normal. Nose: External nose is midline without deformity or lesion. Anterior rhinoscopy reveals a very slight LEFT septal deviation, healthy mucosa, turbinates normal in size. Oral: There are no visible or palpable buccal, gingival, lingual, or palatal lesions. The floor of mouth is soft and flat. Oropharynx: Symmetric without tonsillar pathology. No other concerning lesions or masses Larynx: No stridor, no hoarseness. External laryngeal structures normal to palpation. Face [...] deformities, no peripheral edema. Labs and Imaging - Procedures Procedure: Nasal Endoscopy (CPT 83501) Indication: Symptoms suggestive of chronic rhinosinusitis. Due to limited visualization with anterior rhinoscopy that does not provide sufficient clinical information to establish a diagnosis, sinonasal endoscopy was performed using topical anesthetic and vasoconstrictors as needed. This is medically necessary to evaluate chronic sinonasal symptoms given suspicion of: nasal obstruction not due toseptal deviation that is refractory to medical therapy/chronic sinusitis. Surgeon: Jolanta King MD Informed Consent: The procedure, risks and benefits were discussed with the patient and consent obtained to proceed. Procedure: Topical spray consisting of 1% oxymetazoline and 4% lidocaine was sprayed into the nasalcavity bilaterally. A rigid endoscope was then used to visualize each nasal cavity, utilizing inferior, central and superior passes. Patient tolerated well. Findings: Septum: Slight deviation to LEFT caudally with RIGHT septal spur at level of middle turb Interior nasal cavity: No significant edema, purulence or obstructive lesions bilaterally Inferior turbinates: Normal bilaterally Middle turbinates: Normal bilaterally The middle meatus, superior meatus, and sphenoethmoidal recess are without edema, polyps or purulence bilaterally Maxillary antrostomy, ethmoid cavity, sphenoidotomy, and frontal recess widely open bilaterally. Nopolyps, purulence, or significant mucosal edema. Visualized portion of nasopharynx unremarkable. Olfactory cleft: Patent bilaterally Visualized portion of nasopharynx unremarkable ASSESSMENT & RECOMMENDATIONS Immanuel Guaman is a 46 y.o. with long-standing history of CRSsNP. We discussed this pathology and recommended restarting nasal spray with adjustment in administration technique to avoid septaldamage and epistaxis. We recommended Dymista (combination steroid and antihistamine). We will additionally obtain CT Sinus and plan to follow up in one month. Given patient's significant history of CRS and recurrent sinusitis with exam findings of septal spur/deviation, we can review her CT scan and discuss the role for sinus surgery for improved drug delivery at her follow up. Recommendations: 1. Dymista 2. CT Sinuses Zenaida Hewitt MD 03/26/2022 9:53 AM Otolaryngology - Head and Neck Surgery documented in this encounter Plan of Treatment Not on file documented as of this encounter Results * CT Sinus wo [...] who have questions please contact the health career center director that requested your imaging first. ? Narrative [...] patients who have questions please contactthe health career center director that requested your imaging first. Jolanta King MD IMG CT ORDERABLES documented in this encounter Visit Diagnoses Diagnosis Chronic rhinosinusitis Unspecified sinusitis (chronic) Chronic rhinosinusitis Unspecified sinusitis (chronic) documented in this encounter Care Teams Snow Removal/Plowing Relationship Specialty Start Date End Date Lisa Sanchez, [address] [place] [address] PCP - General Family Medicine 09/26/20 documented as of this encounter
--- OUTSIDE RECORDS SUMMARY | 2024-07-24 00:31 | XMS_ITS | Referral Summary ---
Author Organization [facility] Address [address] [place] [address] Care Team Providers Care Assistant Manager Trainee Name Role Phone Unavailable Primary Care Provider [...] Orientation Not on file Plan of Treatment Not on file Insurance [facility] [place] [address] [place] [address]
--- OUTSIDE RECORDS SUMMARY | 2024-07-24 00:31 | XMS_ITS | Encounter Summary ---
Author Organization [facility] Address [address] [place] [address] Care Team Providers Care Truck Manager Name Role Phone Antonio Carrizales MD Primary Care Provider Un available Encounter Details Date Type Department Care Team (Late st Contact Info) Description 12/18/2012 Results Only [facility] Laboratory Services - [facility] ([facility]) [address] [place] [phone] Pawan Cisneros MD Social History Tobacco Use [...] Diagnosis Comments PAP TEST- RESULT ONLY Routine 12/18/2012 0:00 EDT documented in this encounter Results * PAP TEST- RESULT ONLY (12/18/2012 0:00 EDT) Pathology Report: CYTOPATHOLOGY REPORT Reports generated via electronic interface contain original data; however they are lacking the format of the original report. Caution should be taken when reading/interpreti ng unformatted reports. Name: ? SATNAM GUAMAN ? Accession #: ? [id number] ? : ? 1975 (Age: 37) ??F ?Collect Date: ? 12/18/2012 ? Location: ? [facility] ? Receive Date: ? 12/22/2012 ? Provider: PAWAN CISNEROS MD Copy to: ? Final Report SPECIMEN ADEQUACY ? Satisfactory for Evaluation - transformation zone component present GENERAL CATEGORIZATION ? Negative for Intraepithelial Lesion or Malignancy ?? Last Menstrual Period: n/a Hormonal/Contracep tive status: Tubal ligation: bilateral ??2000 Treatment History: Endometrial biopsy: ablation 2008 Specimen/Source: ??Pap Test, Cervix/Endocervix, ThinPrep Imaging System with manual evaluation Document reviewed and electronically signed by: ? Annelise Regalado, CT(ASCP) ? Report ??Date: 12/25/2012 12:44 HPV with Pap Test ? Date Ordered: ? 12/25/2012 ? Status: ?? Signed Out ?Date Complete: ? 12/29/2012 ? By: ??System Interface ? Date Reported: ? 12/29/2012 ? Interpretation RESULT: Negative for HPV. No E6 or E7 mRNA is detected from HPV types 16,18,31,33,35, 39,45,51,52,56,58, 59,66, and 68 by application integrator mediated amplification. Comments Document reviewed and electronically signed by: ? System Interface ? Report date: 12/29/2012 By the signature above, the attending physician certifies that he/she has personally conducted a gross and/or microscopic examination of the described specimens and rendered or confirmed the above diagnosis. End of Report [facility] 12/18/2012 12/22/2012 us Pawan Cisneros MD PATHOLOGY ORDERABLES Final Res ult Performing Organization Address City/State/[facility] Co de Phone Number NOY [address] [address] documented in this encounter Visit Diagnoses Not on filedocumented in this encounter Care Teams Truck Manager Relationship Specialty Start Date End Date Antonio Carrizales MD PCP - General 11/22/11 04/30/23 documented as of this encounter
--- OUTSIDE RECORDS SUMMARY | 2024-07-24 00:31 | XMS_ITS | Encounter Summary ---
Author Organization [facility] Address [address] [place] [address] Care Team Providers Care Language Instructor Name Role Phone Antonio Carrizales MD Primary Care Provider Un available Encounter Details Date Type Department Care Team (Late st Contact Info) Description 04/30/2023 Lab Requisition [facility] - Main [address] [address] Serafin Carey MD [address] [place] [phone] Encounter for screening for malignant neoplasm of colon Social History Tobacco Use Types Packs/Day Years [...] Procedure Name Priority Date/Time Associated Diagnosis Comments SURGICAL PATHOLOGY Today 04/29/2023 9:58 EDT documented in this encounter Results * SURGICAL PATHOLOGY (04/29/2023 9:58 EDT) Note to Patient The following pathology results have been interpreted by your pathologist and may be available to you before your health provider has had the opportunity to review them. Please allow time for your provider to receive these results and explore management options, if applicable. 05/01/2023 12:16 [facility] Final Diagnosis A. RECTUM, BIOPSIES: - Hyperplastic polyp fragments. 05/01/2023 12:16 [facility] Attestation By the signature below, the attending physician certifies that they have 1) personally conducted a gross and/or microscopic examination of the described specimen(s), and/or personally interpreted the results of laboratory testing of the described specimen(s), and 2) personally rendered or confirmed the above diagnosis. 05/01/2023 12:16 [facility] at 1216 Clinical History screening 05/01/2023 12:16 [facility] Gross Description A. The specimen is received in formalin labeled with ? Chandgermaine Arbuckle? and ? A? and ? rectal polyp x2? are 5 mucosal fragments that range in size from 0.1 x 0.1 x 0.1 cm up to 0.1 x 0.1 x 0.4 cm. The specimen is entirely submitted in 1 cassette. ADRIAN MOHAMUD 04/30/2023 12:57 05/01/2023 12:16 [facility] Performing Lab [facility] 05/01/2023 12:16 [facility] Scanned Images 05/01/2023 12:16 [facility] Tissue ENTIRE RECTUM / Unknown 04/29/2023 9:58 EDT 04/30/2023 8:03 EDT us Serafin Carey MD PATHOLOGY ORDERABLES Final Result [facility] [address] [place] [address] documented in this encounter Visit Diagnoses Diagnosis Encounter for screening for malignant neoplasm of colon Special screening for malignant neoplasms, colon documented in this encounter Care Teams Language Instructor Relationship Specialty Start Date End Date Antonio Carrizales MD PCP - General 11/22/11 04/30/23 documented as of this encounter
--- OUTSIDE RECORDS SUMMARY | 2024-07-24 00:31 | XMS_ITS | Encounter Summary ---
Author Organization [facility] Address [address] [place] [address] Care Team Providers Care Document Controller Name Role Phone Antonio Carrizales MD Primary Care Provider Un available Encounter Details Date Type Department Care Team (Late st Contact Info) Description 11/14/2020 Lab Requisition [facility] Pathology & Laboratory Medicine - [address] [address] Outr Resulting Lab, Provider Social History Tobacco [...] Procedure Name Priority Date/Time Associated Diagnosis Comments VITAMIN B12 Routine 11/14/2020 10:25 EDT documented in this encounter Results * VITAMIN B12 (11/14/2020 10:25 EDT) Vitamin B12 451 211 - 911 pg/mL 11/14/2020 22:04 EDT [facility] Blood VENOUS BLOOD / Unknown 11/14/2020 10:25 EDT 11/14/2020 21:22 EDT us Provider Outr Resulting Lab CHEMISTRY & BLOOD GA S ORDERABLES Final Result [facility] [address] [place] [address] documented in this encounter Visit Diagnoses Not on filedocumented in this encounter Care Teams Document Controller Relationship Specialty Start Date End Date Antonio Carrizales MD PCP - General 11/22/11 04/30/23 documented as of this encounter
--- OUTSIDE RECORDS SUMMARY | 2024-07-24 00:31 | XMS_ITS | Clinical Summary ---
Author Organization [facility] Address [facility] [place] [address] Care Team Providers Care Transformation Architect Name Role Phone DanielEljay Lawson APRN Primary Care Provider + Allergies Active Allergy Reactions Criticality Noted Date Comments Lamotrigine (Bulk) Rash 09/23/2020 Sulfa (Sulfonamide Antibiotics) Rash 09/12 Medications Medication Sig Dispensed Refills Start Date End Date Status FLUoxetine (PROzac) 20 mg Capsule 09/07/2020 Active ibuprofen (Advil;Motrin) 600 mg Tablet TK 1 T PO QID 06/21/2020 Active multivitamin (THERAGRAN) Tablet Take 1 tablet by mouth daily. Active turmeric root extract 500 mg Capsule Take by mouth. Active loratadine (Claritin) 10 mg Tablet Take 10 mg by mouth daily. Active docusate sodium (Colace) 100 mg Capsule Take 200 mg by mouth daily. Active amLODIPine (Norvasc) 10 mg Tablet Take 7.5 mg by mouth daily. Active azelastine-fluticasone (Dymista) 137-50 mcg/spray Coleman, Non-Aerosol 1 spray by Nasal route 2 times daily. 23 g 3 03/26/2022 Active Active Problems Problem Noted Date Diagnosed Date Chronic rhinosinusitis 03/30/2022 Low back pain, non-specific 09/26/2020 Social History Tobacco Use Types Packs/Day Years Used Date Smoking Tobacco: Every Day Cigarettes 0.5 8 Smokeless Tobacco: Never Sex and Gender Information Value Date Recorded Sex Assigned at Not on file Gender Identity Not on file Sexual Orientation Not on file Last Filed Vital Signs Vital Sign Reading [...] Mass Index 22.86 04/30/2022 3:39 PM EDT Plan of Treatment Health Maintenance Due Date Last Done Comments CT Colonography 1975 Colonoscopy 1975 Colorectal Cancer Screening 1975 FIT DNA 1975 FIT 1975 Sigmoidoscopy (10 year) with FIT yearly 1975 Sigmoidoscopy 1975 Pneumococcal Vaccine: At-Risk 5-64yrs (1 of 2 - PCV) 0 10/15/1983 HIV screen 10/15/1995 Hepatitis C Screening 10/15/1995 Lipid Screening 10/15/1995 Hepatitis B vaccine (0-59 yrs) (1) 1996 Tetanus/Diphtheria/Pertussis Vaccines (1 - Tdap) 10/14 HPV test 10/15/2007 PAP Smear 10/15/2007 Breast Cancer Share Decision Needed 2017 Breast Cancer screening 2017 Covid-19 Vaccine (1 - 2023- season) 2024 Influenza (Flu) vaccine (1 o f 1 - Influenza standard series) 04/12/2024 Care Teams Transformation Architect Relationship Specialty Start Date End Date Lisa Sanchez APRN [address] [place] [address] PCP - General Family Medicine 09/26/20
--- OUTSIDE RECORDS SUMMARY | 2024-07-24 00:31 | XMS_ITS | Encounter Summary ---
Author Organization [facility] Address [address] [place] [address] Care Team Providers Care Investigative Analyst Name Role Phone Unavailable Primary Care Provider Unavailabl e Encounter Details Date Type Department Care Team (Late st Contact Info) Description 11/27/2005 Before PRISM Converted Visit (Maple) [facility] - Maple conversion [address] [place] [address] Kerri Boswell MD [address] [place] [address] [address] [place] [address] Social History Tobacco Use Types Packs/Day Years Used Date Smoking Tobacco: Never Assessed Comments Unknown Sex and Gender Information Value Date Recorded Sex Assigned at Not on file Legal Sex Female 18:07 EST Gender Identity Not on file Sexual Orientation Not on file documented as of this encounter Plan of Treatment Not on file documented as of this encounter Visit Diagnoses * Evaluation - Kerri Boswell MD - 07/21/2009 3957 EST [facility] PATIENT EVALUATION - 11/27/2005 This is the first clinic visit for this 30 year old woman who noticed a red rash on the left neck about eight years ago when she was . It has slowly enlarged. It has never been She wonders ifanything can be done cosmetically. She is out in the sun a good deal, ervin easily, and recently began using tanning beds. There is no personal or family history of skin cancer. For past medical history, current medications, medication allergies, family and social history and review of systems, please see dermatology intake sheet on chart. OBJECTIVE: She appeared in no distress. There was marked freckling and pigmentary change in sun-exposed areas. On the left side of the neck, there was a several centimeter patch of prominent telangiectasia. ASSESSMENT: Prominent telangiectasia, left neck, due to photo-damage (poikiloderma.) PLAN: Long discussion, questions answered. Discussed using self-tanning creams instead of tanning beds. Discussed what to look for in terms of skin cancer and how to do self-exams. Discussed that thevessels could be treated with the pulsed dye laser if cosmetically desired and she will pursue this, if desired, in the future. Signed by Kerri Boswell MD 12/10/2005 11:52 Mabel Pearson MD Kerri Boswell MD - Kerri Boswell MD P - mr Job ID: [id number] Document ID: [id number] cc: Ramesh Carrizales MD documented in this encounter
--- OUTSIDE RECORDS SUMMARY | 2024-07-24 00:31 | XMS_ITS | Continuity of Care Document ---
Author Organization [facility] Address [address] [place] [address] Care Team Providers Care Polysom Tech Name Role Phone Symone Cifuentes Primary Care Physician [phone] Encounter [facility] Date(s): 08/19/23 - 08/19/23 [facility] [address] [place] [address] Discharge Disposition: Home Allergies, Adverse Reactions, Alerts [...] needed, # 2 tab, 0 Refill(s), Pharmacy: [id number], 157.48, cm, 08/13/23 8:28:00 EST, Height, 57.15, [...] Member Role: Primary Care Physician Address: Address: [id number] [place] [address]
--- OUTSIDE RECORDS SUMMARY | 2024-07-24 00:31 | XMS_ITS | Encounter Summary ---
Author Organization [facility] Address [address] [place] [address] Care Team Providers Care Rn Interventional Name Role Phone Unavailable Primary Care Provider Unavailabl e Encounter Details Date Type Department Care Team (Late st Contact Info) Description 08/26/2008 Before PRISM Converted Visit (Maple) [facility] - Maple conversion [address] [place] [address] Pawan Cisneros MD Social History Tobacco Use [...] Priority Date/Time Associated Diagnosis Comments CYTOPATHOLOGY Routine 08/26/2008 0:00 EST documented in this encounter Results * CYTOPATHOLOGY (08/26/2008 0:00 EST) Pathology Report: CYTOPATHOLOGY REPORT ? Reports generated via electronic interface contain original data; ? however they are lacking the format of the original report. ? Caution should be taken when reading/interpreti ng unformatted reports. ? Name: ? SATNAM GAUMAN ? Accession #: ? [id number] ? : ? 1975 (Age: 32) ??F ?Collect Date: ? 08/26/2008 ? Location: ? [facility] ? Receive Date: ? 08/27/2008 ? Provider: ?PAWAN CISNEROS MD ? Copy to: ? Specimen/Source: ?Pap Test, Cervix/Endocervix, ThinPrep Imaging System ? with manual evaluation ? Last Menstrual Period: ? 12/23/05 ? Hormonal/Contracep tive Status: ? Tubal ligation: Bilateral 05 ? Other: ? HPVA - HPV testing requested if ASC-US on the current ThinPrep Pap test. ? SPECIMEN ADEQUACY ? Satisfactory for Evaluation ? - transformation zone component present ? GENERAL CATEGORIZATION ? Negative for Intraepithelial Lesion or Malignancy ? Document reviewed and electronically signed by: ? Jolanta Darian, CT(ASCP) ? Report Date: ??08/30/2008 15:27 ? End of Report ? NOY WHALEY 08/26/2008 08/27/2008 us Pawan Cisneros MD PATHOLOGY ORDERABLES Final Res ult NOY WHALEY [address] [place] [address] documented in this encounter Visit Diagnoses Not on filedocumented in this encounter
== END 2024-07-24 00:47 ==
LOC: DI 00:27
PROVIDERS: PCP Family Medicine; Visit Provider Family Medicine
DX: M51.27 Other intervertebral disc displacement, lumbosacral region (principal)
CPT/HCPCS: 72148

== ENCOUNTER 2024-11-11 14:39 | Outpatient (REF) | payer BC, SELFPAY ==
[2024-11-11 16:00] LABS: HCT 41.7 % (36.0-46.0); HGB 14.7 g/dL (11.2-15.7); MCH 32.2 pg (27.0-33.0); MCHC 35.3 % (32.0-36.0); MCV 91 fL (80-95); MPV 10.3 fL (8.0-11.0); Platelet Count 319 10^3/uL (130-400); RBC 4.57 10^6/uL (3.93-5.22); RDW 12.4 % (11.7-14.6); RDW-SD 41.3 fL; WBC 9.43 10^3/uL (4.4-10.8)
[2024-11-11 16:35] LABS: ALT 35 U/L (14-59); AST 28 U/L (15-37); Albumin 4.2 g/dL (3.4-5.0); Alkaline Phosphatase 77 U/L (46-116); Anion Gap 12.7 mmol/L (3-11); BUN 7 mg/dL (7-18); Bilirubin, Total 0.6 mg/dL (0.2-1.0); CO2 24.3 mmol/L (21.0-32.0); CREATININE 0.8 mg/dL (0.55-1.02); Calcium 9.5 mg/dL (8.5-10.1); Chloride 102 mmol/L (98-107); Glucose 103 mg/dL (74-106); Potassium 4.1 mmol/L (3.5-5.1); Sodium 139 mmol/L (136-145); Vitamin B12 346 pg/mL (193-986)
== END 2024-11-11 14:40 | disposition home or self-care (01) ==
LOC: NCHCN 14:39
PROVIDERS: PCP Family Medicine; Visit Provider Family Medicine
DX: Z01.89 Encounter for other specified special examinations (principal); F10.10 Alcohol abuse, uncomplicated
CPT/HCPCS: 80053; 85027; 82607

== ENCOUNTER 2025-02-10 19:19 | Outpatient (REF) | payer BC, SELFPAY ==
[2025-02-10 21:12] LABS: ALT 30 U/L (14-59); AST 33 U/L (15-37); Albumin 4.0 g/dL (3.4-5.0); Alkaline Phosphatase 79 U/L (46-116); Anion Gap 10.7 mmol/L (3-11); BUN 5 mg/dL (7-18); Bilirubin, Total 0.9 mg/dL (0.2-1.0); CO2 25.3 mmol/L (21.0-32.0); Calcium 9.2 mg/dL (8.5-10.1); Chloride 96 mmol/L (98-107); Estimated GFR 111.34 (mL/min/1.73m2); Glucose 98 mg/dL (74-106); Potassium 3.8 mmol/L (3.5-5.1); Sodium 132 mmol/L (136-145); Total Protein 7.4 g/dL (6.4-8.2)
== END 2025-02-10 19:20 | disposition home or self-care (01) ==
LOC: NCHCN 19:19
PROVIDERS: PCP Family Medicine; Visit Provider Family Medicine
DX: I10 Essential (primary) hypertension (principal)
CPT/HCPCS: 80053

== ENCOUNTER 2025-04-05 09:58 | Emergency (ER) | payer BC, SELFPAY ==
[2025-04-05] VITALS (53 sets, daily range): BP systolic 126–186; BP diastolic 69–107; PULSE 73–90; RESP 12–27; TEMP 36.7–36.9; O2SAT 94–100
--- NOTE | 2025-04-05 10:00 | RT.EKG_ITS ---
APPROVED REPORT Exam: Resting ECG Reason for Exam: sob, ? heart attack Patient Location: E HR:80 bpm ECG Measurements Heart Rate 80 AXIS SC 138 P 66 QRSd 83 QRS 86 QT 390 T 79 QTc 449 Conclusion Sinus rhythm...normal P axis, V-rate 60- 99 Nonspecific T abnrm, anterolateral leads...T <-0.10mV, I aVL V2-V6 No Occlusion WI
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
--- NOTE | 2025-04-05 10:15 | DI.RAD_ITS ---
Exam(s) XR PORTABLE CHEST AP EXAM: XR PORTABLE CHEST AP CLINICAL HISTORY: Chest pain TECHNIQUE: 2D digital imaging was performed of the chest. One image was obtained. An AP view was obtained. COMPARISON: No exams were available for comparison FINDINGS: MEDIASTINUM: Normal. HEART: Normal. PULMONARY VASCULATURE: Normal. LUNGS: Clear. PLEURAL SPACE: No pleural effusion or pneumothorax. BONE:Within normal limits for the patient's age. OTHER FINDINGS:Normal. IMPRESSION: No acute pulmonary findings. DATA REPOSITORY: RADIATION DOSE DELIVERED:
[2025-04-05 10:36] LABS: Abs Immature Grans 0.04 10^3/uL (0.0-0.06); HCT 41.3 % (36.0-46.0); HGB 14.9 g/dL (11.2-15.7); Immature Grans % 0.6 %; MCH 32.7 pg (27.0-33.0); MCHC 36.1 % (32.0-36.0); MCV 91 fL (80-95); MPV 9.2 fL (8.0-11.0); Platelet Count 346 10^3/uL (130-400); RBC 4.56 10^6/uL (3.93-5.22); RDW 11.7 % (11.7-14.6); RDW-SD 39.1 fL; WBC 7.15 10^3/uL (4.4-10.8)
[2025-04-05 11:49] LABS: ALT 56 U/L (14-59); AST 53 U/L (15-37); Albumin 4.0 g/dL (3.4-5.0); Alkaline Phosphatase 84 U/L (46-116); Anion Gap 15.0 mmol/L (3-11); BUN 3 mg/dL (7-18); Bilirubin, Total 0.8 mg/dL (0.2-1.0); CO2 23.0 mmol/L (21.0-32.0); Calcium 9.1 mg/dL (8.5-10.1); Chloride 97 mmol/L (98-107); Estimated GFR 111.34 (mL/min/1.73m2); Glucose 87 mg/dL (74-106); Lipase 45 U/L (<78); Magnesium 1.9 mg/dL (1.8-2.4); Potassium 4.0 mmol/L (3.5-5.1); Sodium 135 mmol/L (136-145); Total Protein 7.6 g/dL (6.4-8.2)
[2025-04-05 11:50] LABS: Troponin I < 4 ng/L (<or=51)
[2025-04-05 12:00] LABS: Troponin I 4 ng/L (<or=51)
== END 2025-04-05 12:29 | disposition home or self-care (01) ==
LOC: ER 13:21
PROVIDERS: Emergency Provider Emergency Medicine; PCP Family Medicine
DX: R07.9 Chest pain, unspecified (principal); I10 Essential (primary) hypertension; Z72.0 Tobacco use
CPT/HCPCS: 99284 ×2; 36415; 80053; 83690; 93005; 71045; 83735; 84484; 85025; 93010